=== PATIENT | female | born 1990 | race African-American/Black ===

== ENCOUNTER 2016-11-01 09:22 | Emergency (ER) | payer OTHER ==
[~2016-11-01] VITALS: Ht 172.7 cm; Wt 75.0 kg
[2016-11-01 09:25] VITALS: BP 126/75; PULSE 111; RESP 16; TEMP 98.3; O2SAT 98
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
[2016-11-01] MEDS ORDERED: ORPHENADRINE INJ 60 MG/2 ML AMP IM ONE (10:30)
[2016-11-01] MEDS ORDERED: KETOROLAC TROMETHAMINE 60 MG/2 ML (IM) VIAL IM ONE (10:30)
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
[2016-11-01] MEDS ORDERED: NAPR500T PO (11:09)
[2016-11-01] MEDS ORDERED: ROBA750T PO (11:09)
== END 2016-11-01 12:18 | disposition home or self-care (01) ==
LOC: NEPB 09:22
DX: M54.5 Low back pain (principal); S39.012A Strain of muscle, fascia and tendon of lower back, initial encounter; M25.551 Pain in right hip; S70.10XA Contusion of unspecified thigh, initial encounter; V49.59XA Passenger injured in collision with other motor vehicles in traffic accident, initial encounter; Y93.89 Activity, other specified; Y92.410 Unspecified street and highway as the place of occurrence of the external cause
CPT/HCPCS: 72110; 73502; 84703; 96372; 99283; J1885; J2360

== ENCOUNTER 2018-01-31 18:27 | Emergency (ER) | payer OTHER ==
[~2018-01-31] VITALS: Ht 172.7 cm; Wt 90.0 kg
[~2018-01-31 18:27] MED LIST: NAPR500T2 PO; ROBA750T PO
[2018-01-31 18:56] VITALS: BP 116/81; PULSE 107; RESP 21; TEMP 102.3; O2SAT 98
[2018-01-31] MEDS ORDERED: guaiFENesin/CODEINE SYRUP 200 MG/20 MG/10 ML CUP PO ONE (19:30)
[2018-01-31] MEDS ORDERED: ACETAMINOPHEN 500 MG CPLT PO ONE (19:30)
[2018-01-31] MEDS ORDERED: KETOROLAC TROMETHAMINE 30 MG/ML (IVP) VIAL IV PUSH ONE (19:30)
[2018-01-31] MEDS ORDERED: SODIUM CHLOR 0.9% 1000 ML INJ 1,000 ML IV ONE (19:30)
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
[2018-01-31 20:13] LABS: BASOPHIL % 0.8 % (0.0-2.0); EOSINOPHIL # 0.1 TH/MM3 (0-0.4); EOSINOPHIL % 1.6 % (0.0-4.0); HEMATOCRIT 40.4 % (35.0-46.0); HEMOGLOBIN 13.1 GM/DL (11.6-15.3); LYMPHOCYTE # 1.3 TH/MM3 (1.0-4.8); MEAN CELL VOLUME 83.8 FL (80.0-100.0); MEAN CORPUSCULAR HEMOGLOBIN 27.2 PG (27.0-34.0); MEAN CORPUSCULAR HGB CONC 32.4 % (32.0-36.0); MEAN PLATELET VOLUME 9.2 FL (7.0-11.0); MONO % 16.6 % (0.0-8.0); MONOCYTE # 0.7 TH/MM3 (0-0.9); PLATELET COUNT 214 TH/MM3 (150-450); RED BLOOD COUNT 4.82 MIL/MM3 (4.00-5.30); RED CELL DISTRIBUTION WIDTH 12.7 % (11.6-17.2); WHITE BLOOD COUNT 4.1 TH/MM3 (4.0-11.0)
[2018-01-31 20:18] LABS: AST (GOT) 13 U/L (15-37); BICARBONATE 24.7 MEQ/L (21.0-32.0); BLOOD UREA NITROGEN 8 MG/DL (7-18); CALCIUM 7.7 MG/DL (8.5-10.1); CREATININE 0.94 MG/DL (0.50-1.00); GLOMERULAR FILTRATION RATE 86 ML/MIN (>89); GLUCOSE,RANDOM 87 MG/DL (74-106)
[2018-01-31 20:20] LABS: ALT (GPT) 16 U/L (10-53)
[2018-01-31 20:38] LABS: ALKALINE PHOSPHATASE 61 U/L (45-117); CHLORIDE 109 MEQ/L (98-107); SODIUM (NA) 142 MEQ/L (136-145); TOTAL BILIRUBIN ADULT 0.2 MG/DL (0.2-1.0); TOTAL PROTEIN 6.6 GM/DL (6.4-8.2)
[2018-01-31 20:43] VITALS: BP_SYST 123; BP_SYST 125; BP_SYST 129; BP_DIAS 71; BP_DIAS 72; BP_DIAS 77; RESP 20
[2018-01-31 20:47] VITALS: TEMP 98.9
[2018-01-31] MEDS ORDERED: IBUP-232 PO (21:25)
[2018-01-31] MEDS ORDERED: OSEL75 PO (21:25)
[2018-01-31] MEDS ORDERED: GUAISYP4 PO (21:25)
[2018-01-31] MEDS ORDERED: SUDO60TA2 PO (21:25)
[2018-01-31] MEDS ORDERED: OSELTAMIVIR PHOSPHATE 75 MG CAP PO ONE (21:30)
== END 2018-01-31 21:52 | disposition home or self-care (01) ==
LOC: NEPE 18:27
DX: R55 Syncope and collapse (principal); J11.1 Influenza due to unidentified influenza virus with other respiratory manifestations
CPT/HCPCS: 80053; 82150; 83690; 84703; 85025; 87804; 96361; 96374; 99284; J1885; J7030

== ENCOUNTER 2018-08-18 10:17 | Inpatient (IN) ==
[2018-08-18] MEDS ORDERED: Sod Chloride 0.9% Inj 1,000 ML IV.SIG ONE (12:13)
--- NOTE | 2018-08-18 12:17 | ED ---
HPI General Chief complaint: Syncope Stated complaint: Syncope Time Seen by Provider: 08/18/18 12:13 History of Present Illness HPI narrative: 28-year-old female is brought to the emergency department for evaluation of syncope. Per EMS report the patient passed out in the bathroom at work and a bystander heard her fall and hit the floor. Per EMS report while the patient was waiting in the ambulance bay she tried to get up to go to the bathroom and felt dizzy and per their report her heart rate dropped to the 30s. The patient states that last night she had a mild headache and went to bed hoping it would go away however when she woke up this morning she had a slight headache as well. States that she went to work at 9 AM and was not feeling well overall. States that about 10 minutes prior to her syncopal event she started feeling lightheaded. 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 States that she is still feeling lightheaded when she sits up. States she still has a slight headache. She is also complaining of neck pain, states that the pressure test operator was holding her in an awkward position which she thinks strained her neck. She states she did have cold symptoms last week however this resolved on its own. She denies but states that she is late for her menstrual cycle, her last menstrual period was 07/04/18. States she has been having menstrual cramps for the past 2 weeks intermittently. She denies any fever, chills, nausea, vomiting, chest pain, shortness of breath, diarrhea, numbness or tingling, blurred vision, weakness. States she has never passed out before. States she is currently being evaluated for possible lupus by her PCP and has a history of gestational diabetes, no other medical problems. No other complaints. Related Data Allergies Allergy/AdvReac Type Severity Reaction Status Date / Time No Known Allergies Allergy Verified 08/18/18 11:43 Review of Systems ROS: all other systems reviewed are negative [facility] Medical History Medical History Gestational diabetes (Acute) Lupus (Acute) Patient denies medical problems (Acute) Social History Social History Substance History: No History of Abuse Second Hand Smoke Exposure: No Smoking Status: Never smoker How Often Do You Have a Drink Containing Alcohol: Never Recent Travel in [facility] within the Last 8 Weeks: No Recent Out of Country Travel within the Last 8 Weeks: No Immunization History Tetanus Immunization: <5 Years Exam Narrative Exam Narrative: GENERAL: Well-nourished and well-developed pleasant patient in no acute distress who is nontoxic appearing. SKIN: Warm and dry without any obvious rashes or lesions. HEAD: Normocephalic and atraumatic. EYES: No injection, drainage, or hyphema noted. PERRLA. EOMI. ENT: No nasal drainage noted. Oropharynx is clear and the TMs are normal with good landmarks. NECK: Supple and the trachea is midline. Tenderness to palpation of right trapezius muscles. CARDIOVASCULAR: Regular rate and rhythm. RESPIRATORY: Breath sounds are equal bilaterally with no accessory muscle use, wheezing, rhonchi, or crackles. GASTROINTESTINAL: Abdomen is soft, non-tender, and nondistended. MUSCULOSKELETAL: No obvious deformities, swelling, cyanosis, or ecchymosis is present throughout the upper and lower extremities. Patient has full range of motion without any signs of neurovascular compromise. Distal pulses are 2+ throughout. Strength 5/5 upper and lower extremities and equal bilaterally. NEUROLOGICAL: Awake, alert, and oriented. Normal speech and gait. Cranial nerves are grossly intact. Course Initial Documented Vital Signs Pulse Rate 67 08/18/18 11:39 Respiratory Rate 16 08/18/18 11:39 Blood Pressure 133/91 H 08/18/18 11:39 Pulse Oximetry 100 08/18/18 11:39 Last Documented Vital Signs Pulse Rate 67 08/18/18 11:39 Respiratory Rate 16 08/18/18 11:39 Blood Pressure 133/91 H 08/18/18 11:39 Pulse Oximetry 98 08/18/18 12:00 Medical Decision Making DAVID Attestation DAVID supervised visit: Yes Attestation: I, Dr. Garcia, have reviewed the advance practice practitioner's documentation and am in agreement, met with the patient face to face, made the diagnosis, and the medical decision making was done by me. *My assessment and Findings: Patient has had syncope with collapse and heart rate reported to be in the 30s by EMS. I see no record of evaluation for cardiogenic syncope in our EMR. Please refer to the mid-level documentation for additional details. Of my exam the patient has a soft nontender belly. No murmur on cardiac exam and a regular heart rate. Lungs are clear bilaterally. Neurologic exam is normal with normal cranial nerves speech memory mentation as well. [facility] Narrative Medical decision making narrative: 28-year-old female presents to the emergency department for evaluation of syncope. Patient is afebrile, vital signs are stable. Physical examination is unremarkable with the exception of when the patient sits up in bed she does feel presyncopal. No focal neurologic deficits. IV access is obtained, labs have been drawn and sent. Patient is placed on cardiac telemetry and pulse oximetry monitoring. EKG shows sinus bradycardia with a ventricular rate of 57 bpm. Patient administered IV fluids. CBC is unremarkable. CMP shows slightly low calcium of 7.9 and slightly low albumin of 3.1, otherwise unremarkable. Troponin is less than 0.02. Beta-hCG is less than 1. Chest x-ray is negative for any acute abnormalities. Head CT is negative for any acute abnormalities. CT of cervical spine is negative for any acute abnormalities. Patient reassessed and she is still saying she feels very lightheaded and dizzy when she sits up or tries to stand up. She cannot ambulate due to her presyncopal symptoms. She has had 1.5 L of fluid without improvement. Discussed with attending physician Dr. Garcia who agrees patient should be kept in observation. I spoke with Dr. Oates [facility] who accepts patient for observation. Medical Screen Exam Complete: Yes Emergency Medical Condition: Yes Differential Diagnosis Differential Diagnosis: Dehydration versus electrolyte abnormality versus migraine headache versus Lab Data Lab results reviewed: Yes I reviewed the patient's lab results. Result diagrams: 08/18/18 11:54 08/18/18 11:54 POC Results POC Urine Results Negative Lab Results 08/18/18 08/18/18 08/18/18 Range/Units 11:54 11:54 11:54 WBC 5.6 (4.0-11.0) th/mm3 RBC 4.61 (4.00-5.30) mil/mm3 Hgb 12.8 (11.6-15.3) gm/dL Hct 40.3 (35.0-46.0) % MCV 87.4 (80.0-100.0) fL MCH 27.7 (27.0-34.0) pg MCHC 31.7 L (32.0-36.0) % RDW 13.4 (11.6-17.2) % Plt Count 239 (150-450) th/mm3 MPV 8.9 (7.0-11.0) fL Neut % (Auto) 53.9 (16.0-70.0) % Lymph % (Auto) 34.6 (9.0-44.0) % [place] % (Auto) 8.0 (0.0-8.0) % Eos % (Auto) 2.8 (0.0-4.0) % Baso % (Auto) 0.7 (0.0-2.0) % Neut # (Auto) 3.0 (1.8-7.7) th/mm3 Lymph # (Auto) 1.9 (1.0-4.8) th/mm3 [place] # (Auto) 0.4 (0.0-0.9) th/mm3 Eos # (Auto) 0.2 (0.0-0.4) th/mm3 Baso # (Auto) 0.0 (0.0-0.2) th/mm3 WBC Differential . Differential Comment Auto diff final Sodium 141 Cancelled (136-145) meq/L Potassium 4.1 Cancelled (3.5-5.1) meq/L Chloride 110 H Cancelled (98-107) meq/L Carbon Dioxide 23.0 Cancelled (21.0-32.0) meq/L Anion Gap 8 Cancelled (5-15) meq/L BUN 10 Cancelled (7-18) mg/dL Creatinine 0.76 Cancelled (0.50-1.00) mg/dL Estimated GFR Greater than 89 Cancelled (>89) mL/min Random Glucose 83 Cancelled (74-106) mg/dL Calcium 7.9 L Cancelled (8.5-10.1) mg/dL Prot Corrected Calcium Cancelled Magnesium 1.9 Cancelled (1.5-2.5) mg/dL Total Bilirubin 0.3 Cancelled (0.2-1.0) mg/dL AST 18 Cancelled (15-37) U/L ALT 28 Cancelled (10-53) U/L Alkaline Phosphatase 79 Cancelled (45-117) U/L Troponin I Less than 0.02 L (0.02-0.05) ng/mL Total Protein 6.8 Cancelled (6.4-8.2) g/dL Albumin 3.1 L Cancelled (3.4-5.0) g/dL Beta HCG, Quant Less than 1 Cancelled (0-5) mIU/mL Imaging Data Radiologist's impression: Chest X-Ray 08/18/18 11:55 CONCLUSION: Negative examination. Cervical Spine CT 08/18/18 12:13 CONCLUSION: 1. Negative for an acute traumatic injury Head CT 08/18/18 12:13 CONCLUSION: 1. No acute intracranial abnormality identified. Discharge Plan Discharge Disposition Patient Disposition: 30 Still Patient Discharge Details Diagnosis: Syncope and collapse Physicians Team ED Provider: Naresh Garcia ED Midlevel Provider: Carole Patricia Primary Care Provider: Primary Care Tierra,Gabby Attending Provider: Ronan Oates Other Providers: Lucretia Farias Status ED Status: Admitted Observation Patient
--- NOTE | 2018-08-18 12:24 | XR ---
EXAM DATE: 08/18/2018 12:22 PM EST AGE/SEX: 28 years / Female INDICATIONS: Syncope and low heart rate. CLINICAL DATA: This is the patient's initial encounter. Patient reports that signs and symptoms have been present for 1 day and indicates a pain score of 2/10. MEDICAL/SURGICAL HISTORY: None. None. COMPARISON: [facility] [place], CHEST 1V SINGLE AP, 07/02/2018. . FINDINGS: A single AP view of the chest demonstrates the lungs to be symmetrically aerated without evidence of mass, infiltrate or effusion. The cardiomediastinal contours are unremarkable. Osseous structures a re intact. CONCLUSION: Negative examination. Electronically signed by: Naresh Amin MD 08/18/2018 12:23 PM EST
[2018-08-18 12:30] LABS: Baso % (Auto) 0.7 % (0.0-2.0); Eos # (Auto) 0.2 th/mm3 (0.0-0.4); Eos % (Auto) 2.8 % (0.0-4.0); Hematocrit 40.3 % (35.0-46.0); Hemoglobin 12.8 gm/dL (11.6-15.3); Lymph # (Auto) 1.9 th/mm3 (1.0-4.8); Lymph % (Auto) 34.6 % (9.0-44.0); Mean Corpuscular HGB Conc 31.7 % (32.0-36.0); Mean Corpuscular Hemoglobin 27.7 pg (27.0-34.0); Mean Corpuscular Volume 87.4 fL (80.0-100.0); Mean Platelet Volume 8.9 fL (7.0-11.0); Mono # (Auto) 0.4 th/mm3 (0.0-0.9); Neut % (Auto) 53.9 % (16.0-70.0); Platelet Count 239 th/mm3 (150-450); Red Blood Count 4.61 mil/mm3 (4.00-5.30); Red Cell Distribution Width 13.4 % (11.6-17.2); White Blood Count 5.6 th/mm3 (4.0-11.0)
[2018-08-18 12:51] LABS: Anion Gap 8 meq/L (5-15); Blood Urea Nitrogen 10 mg/dL (7-18); Calcium 7.9 mg/dL (8.5-10.1); Chloride 110 meq/L (98-107); Glomerular Filtration Rate Greater Than 89 mL/min (>89); Glucose,Random 83 mg/dL (74-106); Sodium 141 meq/L (136-145)
[2018-08-18 12:53] LABS: Potassium 4.1 meq/L (3.5-5.1)
--- NOTE | 2018-08-18 12:53 | CT ---
EXAM DATE: 08/18/2018 12:49 PM EST AGE/SEX: 28 years / Female INDICATIONS: Syncope, hit head. CLINICAL DATA: This is the patient's initial encounter. Patient reports that signs and symptoms have been present for 1 day and indicates a pain score of 3/10. MEDICAL/SURGICAL HISTORY: Lupus. None. RADIATION DOSE: 56.35 CTDI (mGy) COMPARISON: [facility] [place]19/2016. . TECHNIQUE: CT of the head without contrast. Using automated exposure control and adjustment of the mA and/or kV according to patient size, radiation dose was kept as low as reasonably achievable to ob tain optimal diagnostic quality images. DICOM format image data is available electronically for revi ew and comparison. FINDINGS: Cerebrum: The ventricles are normal for age. No evidence of midline shift, mass lesion, hemorrhage or acute infarction. No extraaxial fluid collections are seen. Posterior Fossa: The cerebellum and brainstem are intact. The 4th ventricle is midline. The cerebe llopontine angle is unremarkable. Extracranial: The visualized portion of the orbits is intact. Skull: The calvaria is intact. No evidence of skull fracture. CONCLUSION: 1. No acute intracranial abnormality identified. Electronically signed by: Naresh Amin MD 08/18/2018 12:52 PM EST
[2018-08-18 12:55] LABS: Alanine Aminotransferase 28 U/L (10-53); Albumin 3.1 g/dL (3.4-5.0); Alkaline Phosphatase 79 U/L (45-117); Aspartate Aminotransferase 18 U/L (15-37); Magnesium 1.9 mg/dL (1.5-2.5); Total Protein 6.8 g/dL (6.4-8.2)
--- NOTE | 2018-08-18 12:55 | CT ---
EXAM DATE: 08/18/2018 12:51 PM EST AGE/SEX: 28 years / Female INDICATIONS: Syncope, hit head. CLINICAL DATA: This is the patient's initial encounter. Patient reports that signs and symptoms have been present for 1 day and indicates a pain score of 4/10. MEDICAL/SURGICAL HISTORY: Lupus. None. RADIATION DOSE: 17.41 CTDI (mGy) [place] [facility] [place]19[place]. . TECHNIQUE: Contiguous axial images were obtained using helical multirow detector technique. The vol umetric data was post-processed with multiplanar reconstruction in oblique axial, sagittal, and coron al planes. Using automated exposure control and adjustment of the mA and/or kV according to patient s ize, radiation dose was kept as low as reasonably achievable to obtain optimal diagnostic quality lali ges. DICOM format image data is available electronically for review and comparison. FINDINGS: Vertebrae: Normal vertebral body height. Alignment: Normal. No subluxation. C2-3: The bony spinal canal is normal in size. No evidence of disc bulge or herniation. The neural foramina are bilaterally patent. C3-4: The bony spinal canal is normal in size. No evidence of disc bulge or herniation. The neural foramina are bilaterally patent. C4-5: The bony spinal canal is normal in size. No evidence of disc bulge or herniation. The neural foramina are bilaterally patent. C5-6: The bony spinal canal is normal in size. No evidence of disc bulge or herniation. The neural foramina are bilaterally patent. C6-7: The bony spinal canal is normal in size. No evidence of disc bulge or herniation. The neural foramina are bilaterally patent. C7-T1: The bony spinal canal is normal in size. No evidence of disc bulge or herniation. The neura l foramina are bilaterally patent. CONCLUSION: 1. Negative for an acute traumatic injury Electronically signed by: Gray Amin MD 08/18/2018 12:54 PM EST
[2018-08-18 14:50] LABS: Amphetamine Screen,Urine Neg (Neg); Barbiturate Screen,Urine Neg (Neg); Bilirubin,Urine Negative (Negative); Cannabinoid Screen,Urine Neg (Neg); Clarity,Urine Clear (Clear); Cocaine Screen,Urine Neg (Neg); Color,Urine Yellow (Yellw/Straw); Glucose,Urine (UA) Negative (Negative); Leukocyte Esterase,Urine Negative (Negative); Mucus,Urine Few /lpf (Occasional); Nitrite,Urine Negative (Negative); Specific Gravity,Urine 1.016 (1.002-1.035); Squamous Epithelial Cell,Urine 3 /hpf (0-5)
[2018-08-18 14:52] LABS: Opiate Screen,Urine Neg (Neg)
[2018-08-18] MEDS ORDERED: Acetaminophen 325 MG Tablet PO PRN (16:16)
--- NOTE | 2018-08-18 16:33 | P.HP ---
History of Present Illness Service: [facility] Primary Care Physician: No Primary Care Physician Chief Complaint: dizziness, headache History of Present Illness: This is a pleasant 28-year-old -Monegasque female with PMHx of lupus on Prednisone who presents to the emergency room for evaluation of syncope. According to the patient, this morning she got up and felt dizzy, had a headache , and mild nausea. She went to her job at [employer]. While working she continued to feel ill, went to bathroom to splash some water on her face when she passed out. States a [employer] and other employees found her. The next thing she remembers is waking up in the ambulance truck. No loss of bladder or bowel function. Per EMS, while patient was waiting in the ambulance she went to get up to go to the bathroom when she felt dizzy again and heart rate was noted to drop to 30s. Patient indicates that since last night she has had a headache, it is frontal, tension type. She has a history of headaches when she was for which she used to take Fioricet. Denies any photophobia. Indicates that she has been working a lot, works 6 days a week and only has 1 day of. She is telling me that she is having chest tightness, midsternum, non radiating, a "7". States she had chest tightness since coming in. States she had "cold symptoms" approximately 2 weeks ago. Denies any cough, sob, sputum. No recent fever or chills. States her menses are irregular, last one was June. Complaints of mild pelvic cramping. CT of the head negative. Cervical spine CT no acute fractures. Negative urine drug screen. UA was negative. She has hx of syncope back in January when she had the flu. Patient is admitted for further evaluation and treatment. 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 - Medical History Medical History: Medical History (Last Reviewed 08/18/18 @ 16:09 by ROGER Mukherjee) Gestational diabetes Lupus Patient denies medical problems - Family History Family History: Family History (Last Updated 08/18/18 @ 16:16 by ROGER Mukherjee) Mother Diabetes Father Cardiac defibrillator in situ Pacemaker - Social History I have reviewed the patient's Social History: Yes - Tobacco History Second Hand Smoke Exposure: No Smoking Status: Never smoker - Alcohol History How Often Do You Have a Drink Containing Alcohol: Never - Substance Use History Substance History: No History of Abuse - Travel History Recent Travel in the [place] Within the Last 8 Weeks: No Recent Travel Out of the Country Within the Last 8 Weeks: No - Immunization History Tetanus Immunization: <5 Years Medications and Allergies Active Medications: Active Medications Sodium Chloride (Ns Inj) 1,000 mls @ 100 mls/hr IV.CONT .Q10H JAMAL Allergies Allergy/AdvReac Type Severity Reaction Status Date / Time No Known Allergies Allergy Verified 08/18/18 11:43 Exam Vital signs: Vital Signs 08/18/18 11:39 08/18/18 12:00 08/18/18 14:42 Pulse Rate 67 71 Respiratory Rate 16 Blood Pressure 133/91 H 152/70 H Pulse Oximetry 100 98 Intake & Output 08/17/18 08/18/18 08/18/18 18:59 06:59 18:59 Intake Total 1000 / 1000 Balance 1000 / 1000 Weight 65.771 kg Intake: IV 1000 / 1000 NS Inj 1,000 ML @ Wide Open IV. 1000 / 1000 SIG BOLUS ONE Rx#:[id number] Narrative: GENERAL: Well-nourished, well-developed patient in no apparent distress. SKIN: Warm and dry. HEAD: Atraumatic. Normocephalic. EYES: Pupils equal and round. No scleral icterus. No injection or drainage. ENT: No nasal bleeding or discharge. Mucous membranes pink and moist. NECK: Trachea midline. No JVD. CARDIOVASCULAR: Regular rate and rhythm. RESPIRATORY: No accessory muscle use. Clear to auscultation. Breath sounds equal bilaterally. GASTROINTESTINAL: Abdomen soft, non-tender, nondistended. Hepatic and splenic margins not palpable. MUSCULOSKELETAL: Extremities without clubbing, cyanosis, or edema. No obvious deformities. NEUROLOGICAL: Awake and alert and oriented x3. No obvious cranial nerve deficits. Motor grossly within normal limits. Five out of 5 muscle strength in the arms and legs. Normal speech. PSYCHIATRIC: Appropriate mood and affect; insight and judgment normal. Results - Labs CBC & Chem 7: 08/18/18 11:54 08/18/18 11:54 Labs: Laboratory Results - last 24 hr 08/18/18 08/18/18 08/18/18 11:54 11:54 11:54 WBC 5.6 RBC 4.61 Hgb 12.8 Hct 40.3 MCV 87.4 MCH 27.7 MCHC 31.7 L RDW 13.4 Plt Count 239 MPV 8.9 Neut % (Auto) 53.9 Lymph % (Auto) 34.6 [place] % (Auto) 8.0 Eos % (Auto) 2.8 Baso % (Auto) 0.7 Neut # (Auto) 3.0 Lymph # (Auto) 1.9 [place] # (Auto) 0.4 Eos # (Auto) 0.2 Baso # (Auto) 0.0 WBC Differential . Differential Comment Auto diff final Sodium 141 Cancelled Potassium 4.1 Cancelled Chloride 110 H Cancelled Carbon Dioxide 23.0 Cancelled Anion Gap 8 Cancelled BUN 10 Cancelled Creatinine 0.76 Cancelled Estimated GFR Greater than 89 Cancelled Random Glucose 83 Cancelled Calcium 7.9 L Cancelled Prot Corrected Calcium Cancelled Magnesium 1.9 Cancelled Total Bilirubin 0.3 Cancelled AST 18 Cancelled ALT 28 Cancelled Alkaline Phosphatase 79 Cancelled Troponin I Less than 0.02 L Total Protein 6.8 Cancelled Albumin 3.1 L Cancelled Beta HCG, Quant Less than 1 Cancelled Urine Color Urine Clarity Urine pH Ur Specific [place] Urine Protein Urine Glucose (UA) Urine Ketones Urine Occult Blood Urine Nitrate Urine Bilirubin Urine Urobilinogen Ur Leukocyte Esterase Urine RBC Urine WBC Ur Squamous Epith Cells Urine Mucus Micro UA Comment Ur Microscopic Review Urine Culture Comments Urine Opiates Screen Ur Barbiturates Screen Ur Amphetamines Screen U Benzodiazepines Scrn Urine Cocaine Screen U Cannabinoids Screen 08/18/18 08/18/18 14:21 14:21 WBC RBC Hgb Hct MCV MCH MCHC RDW Plt Count MPV Neut % (Auto) Lymph % (Auto) [place] % (Auto) Eos % (Auto) Baso % (Auto) Neut # (Auto) Lymph # (Auto) [place] # (Auto) Eos # (Auto) Baso # (Auto) WBC Differential Differential Comment Sodium Potassium Chloride Carbon Dioxide Anion Gap BUN Creatinine Estimated GFR Random Glucose Calcium Prot Corrected Calcium Magnesium Total Bilirubin AST ALT Alkaline Phosphatase Troponin I Total Protein Albumin Beta HCG, Quant Urine Color Yellow Urine Clarity Clear Urine pH 6.0 Ur Specific [place] 1.016 Urine Protein Negative Urine Glucose (UA) Negative Urine Ketones Negative Urine Occult Blood Negative Urine Nitrate Negative Urine Bilirubin Negative Urine Urobilinogen Less than 2 Ur Leukocyte Esterase Negative Urine RBC Less than 1 Urine WBC 1 Ur Squamous Epith Cells 3 Urine Mucus Few H Micro UA Comment Culture not ind Ur Microscopic Review Not Reportable Urine Culture Comments Culture not ind Urine Opiates Screen Neg Ur Barbiturates Screen Neg Ur Amphetamines Screen Neg U Benzodiazepines Scrn Neg Urine Cocaine Screen Neg U Cannabinoids Screen Neg - Imaging Impressions Chest X-Ray 08/18/18 11:55 CONCLUSION: Negative examination. Cervical Spine CT 08/18/18 12:13 CONCLUSION: 1. Negative for an acute traumatic injury Head CT 08/18/18 12:13 CONCLUSION: 1. No acute intracranial abnormality identified. Caprini VTE Risk Assessment Caprini VTE Risk Assessment: No/Low Risk (score <= 1) Caprini Risk Assessment Model: Point Value = 1 Point Value = 2 Point Value = 3 Point Value = 5 Age 41-60 Minor surgery BMI > 25 kg/m2 Swollen legs Varicose veins or History of unexplained or recurrent spontaneous Oral contraceptives or hormone replacement Sepsis (< 1 month) Serious lung disease, including pneumonia (< 1 month) Abnormal pulmonary function Acute myocardial infarction Congestive heart failure (< 1 month) History of inflammatory bowel disease Medical patient at bed rest Age 61-74 Arthroscopic surgery Major open surgery (> 45 min) Laparoscopic surgery (> 45 min) Malignancy Confined to bed (> 72 hours) Immobilizing plaster cast Central venous access Age >= 75 History of VTE Family history of VTE Factor V Leiden Prothrombin [id number] Lupus anticoagulant Anticardiolipin antibodies Elevated serum homocysteine Heparin-induced thrombocytopenia Other congenital or acquired thrombophilia Stroke (< 1 month) Elective arthroplasty Hip, pelvis, or leg fracture Acute spinal cord injury (< 1 month) Prophylaxis Regimen: Total Risk Factor Score Risk Level Prophylaxis Regimen 0-1 Low Early ambulation 2 Moderate Order ONE of the following: *Sequential Compression Device (SCD) *Heparin 5000 units SQ BID 3-4 Higher Order ONE of the following medications: *Heparin 5000 units SQ TID *Enoxaparin/Lovenox 40 mg SQ daily (WT < 150 kg, CrCl > 30 mL/min) *Enoxaparin/Lovenox 30 mg SQ daily (WT < 150 kg, CrCl > 10-29 mL/min) *Enoxaparin/Lovenox 30 mg SQ BID (WT < 150 kg, CrCl > 30 mL/min) AND/OR *Sequential Compression Device (SCD) 5 or more Highest Order ONE of the following medications: *Heparin 5000 units SQ TID (Preferred with Epidurals) *Enoxaparin/Lovenox 40 mg SQ daily (WT < 150 kg, CrCl > 30 mL/min) *Enoxaparin/Lovenox 30 mg SQ daily (WT < 150 kg, CrCl > 10-29 mL/min) *Enoxaparin/Lovenox 30 mg SQ BID (WT < 150 kg, CrCl > 30 mL/min) AND *Sequential Compression Device (SCD) Assessment and Plan - Assessment (1) Syncope and collapse Code(s): R55 - Syncope and collapse Status: Acute (2) Cephalgia Code(s): R51 - Headache Status: Acute - Plan 28 year old female admitted with c/o dizziness, headache. Today while walking to bathroom she passed out. During EMS evaluation, she felt dizzy again and was noted bradycardic with HR down to 30s. Laboratory work up unremarkable, CT head negative. Syncope, etiology unclear Initially complaining of feeling dizzy and having headache. 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 Neurology evaluation recommended -Echo ordered as well as carotid US -Continuous cardiac monitoring -Orthostatics q shift -Neurology consulted per cardiology -NS @ 100/hr Cephalgia, tension type headache -Neurology consultation -will check sed rate, TSH Chest pain, atypical Trop negative, EKG reviewed SB -continue to monitor -rn cardiac rehab -Cardiology following Hx of Lupus on chronic steroids -will resume when home medications are reconciled. DVT prophylaxis-pt. ambulatory Code Status: Full code Discussed Condition With: RN, pt Discharge Planning: pending work up (2) Cephalgia Qualifiers: Headache type: tension-type Headache chronicity pattern: episodic headache
--- NOTE | 2018-08-18 16:34 | US ---
EXAM DATE: 08/18/2018 4:27 PM EST AGE/SEX: 28 years / Female INDICATIONS: Syncope. CLINICAL DATA: This is the patient's initial encounter. Patient reports that signs and symptoms have been present for 1 day and indicates a pain score of 8/10. MEDICAL/SURGICAL HISTORY: Lupus. Gestational diabetes. None. COMPARISON: No prior exams available for comparison. VELOCITY PARAMETERS: ICA/CCA Ratio: Right 1.0 , Left 1.1 ICA: Right 138 cm/sec, Left 153 cm/sec CCA: Right 142 cm/sec, Left 144 cm/sec ECA: Right 90 cm/sec, Left 73 cm/sec Vertebral: Right 82 cm/sec antegrade, Left 132 cm/sec antegrade FINDINGS: RIGHT CAROTID: There is no evidence for a hemodynamically significant carotid stenosis. Minimal int imal hyperplasia is present with scattered calcific plaque. LEFT CAROTID: There is no evidence for a hemodynamically significant carotid stenosis. Minimal inti mal hyperplasia is present with scattered calcific plaque. Flow is antegrade in both vertebral arteries. There are no ancillary masses or adenopathy. CONCLUSION: Negative examination for a hemodynamically significant carotid stenosis. Gray Amin MD FACR on-call Electronically signed by: Gray Amin MD 08/18/2018 4:33 PM EST
[2018-08-18] MEDS: Sod Chloride 0.9% Inj 1,000 ML IV.CONT SCH (16:50)
--- NOTE | 2018-08-18 17:02 | P.CONCA ---
History of Present Illness Service: Cardiology Consult date: 08/18/18 Requesting Physician: Ronan Oates Reason for Consult: Syncope Primary Care Provider: No Primary Care Physician Chief Complaint: dizziness, headache History of Present Illness: This is a very pleasant 28-year-old female with a past medical history of Lupus. She states that she was at work earlier today and had a syncopal episode in the bathroom. She states that when she woke up this morning she had a headache and did not feel well but went to work anyway. While at work , she became worse and had to lay her head down for a few minutes. She also stated that, a coworker told her that she did not look good. Per the records, EMS reported that a bystander heard her fall and hit the floor. EMS also reported, that while they were waiting in the ambulance bay, she had to go to the restroom. When she got up she became dizzy and her heart rate dropped into the 30's. She denied any CP, pressure, palpitations, edema or SOB prior to this episode. She did complain of dizziness. Currently, she denies any CP, pressure, palpitations, dizziness, edema or SOB. She does complain of a headache. 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 - Medical History Medical History: Medical History (Last Reviewed 08/18/18 @ 16:09 by ROGER Mukherjee) Gestational diabetes Lupus Patient denies medical problems - Family History Family History: Family History (Last Updated 08/18/18 @ 16:16 by ROGER Mukherjee) Mother Diabetes Father Cardiac defibrillator in situ Pacemaker - Tobacco History Second Hand Smoke Exposure: No Smoking Status: Never smoker - Alcohol History How Often Do You Have a Drink Containing Alcohol: Never - Substance Use History Substance History: No History of Abuse - Travel History Recent Travel in the [place] Within the Last 8 Weeks: No Recent Travel Out of the Country Within the Last 8 Weeks: No - Immunization History Tetanus Immunization: <5 Years Medications and Allergies Allergies Allergy/AdvReac Type Severity Reaction Status Date / Time No Known Allergies Allergy Verified 08/18/18 11:43 Active Medications: Active Medications Acetaminophen (Tylenol) 650 mg PO Q4H PRN PRN Reason: Temp > 100.4 Al Hydroxide/Mg Hydroxide (Milk Of Magnesia Liq) 30 ml PO DAILY PRN PRN Reason: SEVERE CONSITIPATION Sodium Chloride (Ns Inj) 1,000 mls @ 100 mls/hr IV.CONT .Q10H JAMAL Ondansetron HCl (Zofran Inj) 4 mg IV.PUSH Q6H PRN PRN Reason: NAUSEA Exam Vital signs: Vital Signs 08/18/18 11:39 08/18/18 12:00 08/18/18 14:42 Pulse Rate 67 71 Respiratory Rate 16 Blood Pressure 133/91 H 152/70 H Pulse Oximetry 100 98 Intake & Output 08/17/18 08/18/18 08/18/18 18:59 06:59 18:59 Intake Total 1000 / 1000 Balance 1000 / 1000 Weight 65.771 kg Intake: IV 1000 / 1000 NS Inj 1,000 ML @ Wide Open IV. 1000 / 1000 SIG BOLUS ONE Rx#:[id number] - Constitutional no acute distress - Routine HEENT Exam Head: Present: normocephalic Eye: Present: PERRL ENT: Present: mucous membranes moist - Routine Neck Exam Present: full ROM - Routine Respiratory Exam Present: CTA bilaterally - Routine Cardiovascular Exam Present: S1, S2. Absent: murmur, gallop, rubs - Routine Abdominal Exam Present: soft, normoactive bowel sounds - Routine Extremities Exam Present: full ROM, pulses intact, normal capillary refill. Absent: cyanosis, clubbing, edema - Routine Skin Exam Present: intact - Routine Neurological Exam Present: oriented X3 Results 08/18/18 11:54 08/18/18 11:54 Cardiac Enzymes 08/18/18 08/18/18 Range/Units 11:54 11:54 AST 18 Cancelled (15-37) U/L Troponin I Less than 0.02 L (0.02-0.05) ng/mL CBC 08/18/18 Range/Units 11:54 WBC 5.6 (4.0-11.0) th/mm3 RBC 4.61 (4.00-5.30) mil/mm3 Hgb 12.8 (11.6-15.3) gm/dL Hct 40.3 (35.0-46.0) % Plt Count 239 (150-450) th/mm3 Neut # (Auto) 3.0 (1.8-7.7) th/mm3 Lymph # (Auto) 1.9 (1.0-4.8) th/mm3 [place] # (Auto) 0.4 (0.0-0.9) th/mm3 Eos # (Auto) 0.2 (0.0-0.4) th/mm3 Baso # (Auto) 0.0 (0.0-0.2) th/mm3 Comprehensive Metabolic Panel 08/18/18 08/18/18 Range/Units 11:54 11:54 Sodium 141 Cancelled (136-145) meq/L Potassium 4.1 Cancelled (3.5-5.1) meq/L Chloride 110 H Cancelled (98-107) meq/L Carbon Dioxide 23.0 Cancelled (21.0-32.0) meq/L BUN 10 Cancelled (7-18) mg/dL Creatinine 0.76 Cancelled (0.50-1.00) mg/dL Calcium 7.9 L Cancelled (8.5-10.1) mg/dL AST 18 Cancelled (15-37) U/L ALT 28 Cancelled (10-53) U/L Alkaline Phosphatase 79 Cancelled (45-117) U/L Total Protein 6.8 Cancelled (6.4-8.2) g/dL Albumin 3.1 L Cancelled (3.4-5.0) g/dL Intake and Output 08/18/18 08/18/18 08/18/18 06:59 14:59 22:59 Intake Total 1000 / 1000 Balance 1000 / 1000 Intake: IV 1000 / 1000 NS Inj 1,000 ML @ Wide Open IV. 1000 / 1000 SIG BOLUS ONE Rx#:[id number] Other: Weight 65.771 kg Patient Weight 08/19/18 06:59 Weight 65.771 kg - Imaging and Cardiology Imaging: Impressions Carotid Doppler Study 08/18/18 00:00 CONCLUSION: Negative examination for a hemodynamically significant carotid stenosis. Gray Amin MD FACR on-call Chest X-Ray 08/18/18 11:55 CONCLUSION: Negative examination. Cervical Spine CT 08/18/18 12:13 CONCLUSION: 1. Negative for an acute traumatic injury Head CT 08/18/18 12:13 CONCLUSION: 1. No acute intracranial abnormality identified. Assessment and Plan - Assessment (1) Syncope and collapse Code(s): R55 - Syncope and collapse Status: Acute (2) Cephalgia Code(s): R51 - Headache Status: Acute (3) Lupus (systemic lupus erythematosus) Code(s): M32.9 - Systemic lupus erythematosus, unspecified Status: Acute - Plan -Patient is having a headache; recommend neurology evaluation. -We will obtain orthostatics to evaluate for orthostatic hypotension. -We will get a 2D echo to evaluate LV function. -We will obtain a carotid US. -We will continue to monitor her on telemetry during her hospitalization. The patient was seen and evaluated by Dr. Farias who participated in care, management and decision making. - Attending Attestation Patient seen and examined. I reviewed and agree with the evaluation and plan as presented. Check echo. Neurology evaluation. Continue monitoring on telemetry. (2) Cephalgia Qualifiers: Headache type: tension-type Headache chronicity pattern: episodic headache
[2018-08-19] MEDS: Sod Chloride 0.9% Inj 1,000 ML IV.CONT SCH ×4 (01:25→13:30)
[2018-08-19 06:56] LABS: Baso % (Auto) 0.6 % (0.0-2.0); Eos # (Auto) 0.2 th/mm3 (0.0-0.4); Eos % (Auto) 4.2 % (0.0-4.0); Hematocrit 39.7 % (35.0-46.0); Hemoglobin 12.7 gm/dL (11.6-15.3); Lymph # (Auto) 1.7 th/mm3 (1.0-4.8); Lymph % (Auto) 33.6 % (9.0-44.0); Mean Corpuscular Hemoglobin 27.7 pg (27.0-34.0); Mean Corpuscular Volume 86.5 fL (80.0-100.0); Mean Platelet Volume 9.1 fL (7.0-11.0); Mono # (Auto) 0.3 th/mm3 (0.0-0.9); Mono % (Auto) 6.6 % (0.0-8.0); Neut # (Auto) 2.8 th/mm3 (1.8-7.7); Platelet Count 226 th/mm3 (150-450); Red Blood Count 4.59 mil/mm3 (4.00-5.30); Red Cell Distribution Width 13.4 % (11.6-17.2)
--- NOTE | 2018-08-19 10:13 | P.PN ---
Physical Exam Vital signs: Vital Signs 08/18/18 11:39 08/18/18 12:00 08/18/18 14:42 Temperature Pulse Rate 67 71 Respiratory Rate 16 Blood Pressure 133/91 H 152/70 H Pulse Oximetry 100 98 08/18/18 20:00 08/18/18 20:50 08/18/18 23:35 Temperature 96.5 F L 96.6 F L Pulse Rate 96 H 82 88 Respiratory Rate 18 18 Blood Pressure 98/65 L 107/63 Pulse Oximetry 98 98 08/19/18 03:38 08/19/18 08:00 Temperature 98.6 F 98.2 F Pulse Rate 76 76 Respiratory Rate 18 17 Blood Pressure 104/67 107/57 L Pulse Oximetry 100 99 Intake & Output 08/18/18 08/19/18 08/19/18 18:59 06:59 18:59 Intake Total 1000 / 1000 1480 / 1480 Balance 1000 / 1000 1480 / 1480 Weight 92.079 kg Intake: IV 1000 / 1000 1000 / 1000 NS Inj 1,000 ML @ 100 mls/hr IV 1000 / 1000 .CONT .Q10H JAMAL Rx#:[id number] NS Inj 1,000 ML @ Wide Open IV. 1000 / 1000 SIG BOLUS ONE Rx#:[id number] Oral 480 / 480 Other: # Voids 1 3 Weight On Admission 172.72 kg Results - Labs CBC & Chem 7: 08/19/18 05:49 08/18/18 11:54 Laboratory Results - last 24 hr 08/18/18 08/18/18 08/18/18 11:54 11:54 11:54 WBC 5.6 RBC 4.61 Hgb 12.8 Hct 40.3 MCV 87.4 MCH 27.7 MCHC 31.7 L RDW 13.4 Plt Count 239 MPV 8.9 Neut % (Auto) 53.9 Lymph % (Auto) 34.6 Hall % (Auto) 8.0 Eos % (Auto) 2.8 Baso % (Auto) 0.7 Neut # (Auto) 3.0 Lymph # (Auto) 1.9 Hall # (Auto) 0.4 Eos # (Auto) 0.2 Baso # (Auto) 0.0 WBC Differential . Differential Comment Auto diff final ESR Sodium 141 Cancelled Potassium 4.1 Cancelled Chloride 110 H Cancelled Carbon Dioxide 23.0 Cancelled Anion Gap 8 Cancelled BUN 10 Cancelled Creatinine 0.76 Cancelled Estimated GFR Greater than 89 Cancelled Random Glucose 83 Cancelled Calcium 7.9 L Cancelled Prot Corrected Calcium Cancelled Magnesium 1.9 Cancelled Total Bilirubin 0.3 Cancelled AST 18 Cancelled ALT 28 Cancelled Alkaline Phosphatase 79 Cancelled Troponin I Less than 0.02 L Total Protein 6.8 Cancelled Albumin 3.1 L Cancelled TSH Beta HCG, Quant Less than 1 Cancelled Urine Color Urine Clarity Urine pH Ur Specific [place] Urine Protein Urine Glucose (UA) Urine Ketones Urine Occult Blood Urine Nitrate Urine Bilirubin Urine Urobilinogen Ur Leukocyte Esterase Urine RBC Urine WBC Ur Squamous Epith Cells Urine Mucus Micro UA Comment Ur Microscopic Review Urine Culture Comments Urine Opiates Screen Ur Barbiturates Screen Ur Amphetamines Screen U Benzodiazepines Scrn Urine Cocaine Screen U Cannabinoids Screen 08/18/18 08/18/18 08/18/18 11:54 11:54 14:21 WBC RBC Hgb Hct MCV MCH MCHC RDW Plt Count MPV Neut % (Auto) Lymph % (Auto) [place] % (Auto) Eos % (Auto) Baso % (Auto) Neut # (Auto) Lymph # (Auto) Hall # (Auto) Eos # (Auto) Baso # (Auto) WBC Differential Differential Comment ESR 9 Sodium Potassium Chloride Carbon Dioxide Anion Gap BUN Creatinine Estimated GFR Random Glucose Calcium Prot Corrected Calcium Magnesium Total Bilirubin AST ALT Alkaline Phosphatase Troponin I Total Protein Albumin TSH 0.626 Beta HCG, Quant Urine Color Urine Clarity Urine pH Ur Specific [place] Urine Protein Urine Glucose (UA) Urine Ketones Urine Occult Blood Urine Nitrate Urine Bilirubin Urine Urobilinogen Ur Leukocyte Esterase Urine RBC Urine WBC Ur Squamous Epith Cells Urine Mucus Micro UA Comment Ur Microscopic Review Urine Culture Comments Urine Opiates Screen Neg Ur Barbiturates Screen Neg Ur Amphetamines Screen Neg U Benzodiazepines Scrn Neg Urine Cocaine Screen Neg U Cannabinoids Screen Neg 08/18/18 08/18/18 08/19/18 14:21 18:15 00:53 WBC RBC Hgb Hct MCV MCH MCHC RDW Plt Count MPV Neut % (Auto) Lymph % (Auto) [place] % (Auto) Eos % (Auto) Baso % (Auto) Neut # (Auto) Lymph # (Auto) Hall # (Auto) Eos # (Auto) Baso # (Auto) WBC Differential Differential Comment ESR Sodium Potassium Chloride Carbon Dioxide Anion Gap BUN Creatinine Estimated GFR Random Glucose Calcium Prot Corrected Calcium Magnesium Total Bilirubin AST ALT Alkaline Phosphatase Troponin I Less than 0.02 L Less than 0.02 L Total Protein Albumin TSH Beta HCG, Quant Urine Color Yellow Urine Clarity Clear Urine pH 6.0 Ur Specific [place] 1.016 Urine Protein Negative Urine Glucose (UA) Negative Urine Ketones Negative Urine Occult Blood Negative Urine Nitrate Negative Urine Bilirubin Negative Urine Urobilinogen Less than 2 Ur Leukocyte Esterase Negative Urine RBC Less than 1 Urine WBC 1 Ur Squamous Epith Cells 3 Urine Mucus Few H Micro UA Comment Culture not ind Ur Microscopic Review Not Reportable Urine Culture Comments Culture not ind Urine Opiates Screen Ur Barbiturates Screen Ur Amphetamines Screen U Benzodiazepines Scrn Urine Cocaine Screen U Cannabinoids Screen 08/19/18 05:49 WBC 5.0 RBC 4.59 Hgb 12.7 Hct 39.7 MCV 86.5 MCH 27.7 MCHC 32.0 RDW 13.4 Plt Count 226 MPV 9.1 Neut % (Auto) 55.0 Lymph % (Auto) 33.6 Hall % (Auto) 6.6 Eos % (Auto) 4.2 H Baso % (Auto) 0.6 Neut # (Auto) 2.8 Lymph # (Auto) 1.7 Hall # (Auto) 0.3 Eos # (Auto) 0.2 Baso # (Auto) 0.0 WBC Differential . Differential Comment Auto diff final ESR Sodium Potassium Chloride Carbon Dioxide Anion Gap BUN Creatinine Estimated GFR Random Glucose Calcium Prot Corrected Calcium Magnesium Total Bilirubin AST ALT Alkaline Phosphatase Troponin I Total Protein Albumin TSH Beta HCG, Quant Urine Color Urine Clarity Urine pH Ur Specific [place] Urine Protein Urine Glucose (UA) Urine Ketones Urine Occult Blood Urine Nitrate Urine Bilirubin Urine Urobilinogen Ur Leukocyte Esterase Urine RBC Urine WBC Ur Squamous Epith Cells Urine Mucus Micro UA Comment Ur Microscopic Review Urine Culture Comments Urine Opiates Screen Ur Barbiturates Screen Ur Amphetamines Screen U Benzodiazepines Scrn Urine Cocaine Screen U Cannabinoids Screen - Imaging Impressions Carotid Doppler Study 08/18/18 00:00 CONCLUSION: Negative examination for a hemodynamically significant carotid stenosis. Gray Amin MD FACR on-call Chest X-Ray 08/18/18 11:55 CONCLUSION: Negative examination. Cervical Spine CT 08/18/18 12:13 CONCLUSION: 1. Negative for an acute traumatic injury Head CT 08/18/18 12:13 CONCLUSION: 1. No acute intracranial abnormality identified. Assessment and Plan - Assessment (1) Syncope and collapse Code(s): R55 - Syncope and collapse Status: Acute (2) Cephalgia Code(s): R51 - Headache Status: Acute - Plan 28 year old female admitted with c/o dizziness, headache. Today while walking to bathroom she passed out. During EMS evaluation, she felt dizzy again and was noted bradycardic with HR down to 30s. Laboratory work up unremarkable, CT head negative. Syncope, etiology unclear Initially complaining of feeling dizzy and having headache. -Cardiology consultation, d/w [employer] CR[employer]. 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 DVT prophylaxis-pt. ambulatory Discharge Planning: pending work up (2) Cephalgia Qualifiers: Headache type: tension-type Headache chronicity pattern: episodic headache
--- NOTE | 2018-08-19 11:34 | ECHRPT ---
Indication: SYNCOPE CONCLUSIONS Normal left ventricular size. Wall thickness is normal. The left ventricular systolic function is no rmal with an estimated ejection fraction in the range of 60-65%. No regional wall motion abnormalities are prese nt. There is trace tricuspid valve regurgitation. The estimated pulmonary arterial pressure is 28 mmHg. BP: / HR: Rhythm: Sinus MEASUREMENTS (Male / Female) Normal Values Technical Quality:Good 2D ECHO LV Diastolic Diameter PLAX 3.9 cm 4.2 - 5.9 / 3.9 - 5.3 cm LV Systolic Diameter PLAX 2.6 cm IVS Diastolic Thickness 1.0 cm 0.6 - 1.0 / 0.6 - 0.9 cm LVPW Diastolic Thickness 1.0 cm 0.6 - 1.0 / 0.6 - 0.9 cm LV Relative Wall Thickness 0.5 LVOT Diameter 1.9 cm LA Systolic Diameter LX 2.5 cm 3.0 - 4.0 / 2.7 - 3.8 cm LV Ejection Fraction MOD 4C 70.1 % LV Ejection Fraction 4C AL 72.6 % M-MODE Aortic Root Diameter MM 1.9 cm LA Systolic Diameter MM 2.9 cm LA Ao Ratio MM 1.5 AV Cusp Separation MM 1.9 cm DOPPLER AV Peak Velocity 110.0 cm/s AV Peak Gradient 4.8 mmHg LVOT Peak Velocity 85.9 cm/s LVOT Peak Gradient 3.0 mmHg AV Area Cont Eq pk 2.2 cm MV Area PHT 4.2 cm Mitral E Point Velocity 96.7 cm/s Mitral A Point Velocity 61.7 cm/s Mitral E to A Ratio 1.6 LV E' Lateral Velocity 13.1 cm/s Mitral E to LV E' Lateral Ratio 7.4 LV E' Septal Velocity 11.2 cm/s Mitral E to LV E' Septal Ratio 8.6 TR Peak Velocity 214.0 cm/s TR Peak Gradient 18.3 mmHg Right Atrial Pressure 10.0 mmHg Pulmonary Artery Systolic Pressu 28.3 mmHg Right Ventricular Systolic Press 28.3 mmHg PV Peak Velocity 69.2 cm/s PV Peak Gradient 1.9 mmHg FINDINGS LEFT VENTRICLE Normal left ventricular size. Wall thickness is normal. The left ventricular systolic function is no rmal with an estimated ejection fraction in the range of 60-65%. No regional wall motion abnormalities are prese nt. RIGHT VENTRICLE Normal right ventricular size and systolic function. LEFT ATRIUM The left atrial size is normal. RIGHT ATRIUM The right atrial size is normal. ATRIAL SEPTUM Normal atrial septal thickness without atrial level shunting by limited color doppler interrogation. AORTA The aortic root and proximal ascending aorta are normal in size on limited imaging. MITRAL VALVE Structurally normal mitral valve. No mitral valve stenosis or regurgitation. AORTIC VALVE Trileaflet aortic valve. No aortic valve stenosis or regurgitation. TRICUSPID VALVE There is trace tricuspid valve regurgitation. The estimated pulmonary arterial pressure is 28 mmHg. PULMONARY VALVE No pulmonary valve regurgitation or stenosis. VESSELS The inferior vena cava is normal in size. PERICARDIUM No pericardial effusion. Gallito Villa MD (Electronically Signed) Final Date:19 August 2018 11:33
--- NOTE | 2018-08-19 11:49 | P.PN ---
Subjective Interval history: follow up for syncope, headache, dizziness: Patient seen and examined, awake, alert oriented x3. Mild dizziness today when getting out of bed, felt that she was spinning as well as the room. Mild headache. No nausea, no vomiting. Complains of chest pain on inspiration and palpation, same as yesterday. Nonradiating, no shortness of breath. Negative orthostatics. Went for echocardiogram. Sinus rhythm on monitor. 1300-called to room, pt. found on floor. [place] banging on door with foot, unclear if seizure. Was found lethargic, unable to get up. No loss of bowel or bladder function. No focal deficit noted. Hemodynamically stable. Halicat called. Stat BMP and CBC. Neurology consult pending. EEG ordered. Keppra 1000 mg loading dose x1 1430-patient was being evaluated by physical therapy, she sat up in bed again became very dizzy and near syncopal. Eyes fluttering. Patient was put back to bed. Ativan 0.5 mg IVP x1 given 1500-Dr. Vaughn evaluating patient, recommends no Keppra,try Fioricet and start Topamax 50 mg po bid. Orders placed. Pt. bedrest now, seizure precautions. Updated family at d Physical Exam Vital signs: Vital Signs 08/18/18 12:00 08/18/18 14:42 08/18/18 20:00 Temperature 96.5 F L Pulse Rate 71 96 H Respiratory Rate 18 Blood Pressure 152/70 H 98/65 L Pulse Oximetry 98 98 08/18/18 20:50 08/18/18 23:35 08/19/18 03:38 Temperature 96.6 F L 98.6 F Pulse Rate 82 88 76 Respiratory Rate 18 18 Blood Pressure 107/63 104/67 Pulse Oximetry 98 100 08/19/18 08:00 Temperature 98.2 F Pulse Rate 63 Respiratory Rate 17 Blood Pressure 107/57 L Pulse Oximetry 99 Intake & Output 08/18/18 08/19/18 08/19/18 18:59 06:59 18:59 Intake Total 1000 / 1000 1480 / 1480 Balance 1000 / 1000 1480 / 1480 Weight 92.079 kg Intake: IV 1000 / 1000 1000 / 1000 NS Inj 1,000 ML @ 100 mls/hr IV 1000 / 1000 .CONT .Q10H JAMAL Rx#:[id number] NS Inj 1,000 ML @ Wide Open IV. 1000 / 1000 SIG BOLUS ONE Rx#:[id number] Oral 480 / 480 Other: # Voids 1 3 Weight On Admission 172.72 kg Narrative: GENERAL: Well-nourished, well-developed patient in no apparent distress. SKIN: Warm and dry. HEAD: Atraumatic. Normocephalic. EYES: Pupils equal and round. No scleral icterus. No injection or drainage. ENT: No nasal bleeding or discharge. Mucous membranes pink and moist. NECK: Trachea midline. No JVD. CARDIOVASCULAR: Regular rate and rhythm. RESPIRATORY: No accessory muscle use. Clear to auscultation. Breath sounds equal bilaterally. GASTROINTESTINAL: Abdomen soft, non-tender, nondistended. Hepatic and splenic margins not palpable. MUSCULOSKELETAL: Extremities without clubbing, cyanosis, or edema. No obvious deformities. NEUROLOGICAL: Awake and alert and oriented x3. No obvious cranial nerve deficits. Motor grossly within normal limits. Five out of 5 muscle strength in the arms and legs. Normal speech. PSYCHIATRIC: Appropriate mood and affect; insight and judgment normal. Results - Labs CBC & Chem 7: 08/19/18 13:34 08/19/18 13:34 Laboratory Results - last 24 hr 08/18/18 08/18/18 08/18/18 11:54 11:54 11:54 WBC 5.6 RBC 4.61 Hgb 12.8 Hct 40.3 MCV 87.4 MCH 27.7 MCHC 31.7 L RDW 13.4 Plt Count 239 MPV 8.9 Neut % (Auto) 53.9 Lymph % (Auto) 34.6 [place]da % (Auto) 8.0 Eos % (Auto) 2.8 Baso % (Auto) 0.7 Neut # (Auto) 3.0 Lymph # (Auto) 1.9 [place]da # (Auto) 0.4 Eos # (Auto) 0.2 Baso # (Auto) 0.0 WBC Differential . Differential Comment Auto diff final ESR D-Dimer Quant (PE/DVT) Sodium 141 Cancelled Potassium 4.1 Cancelled Chloride 110 H Cancelled Carbon Dioxide 23.0 Cancelled Anion Gap 8 Cancelled BUN 10 Cancelled Creatinine 0.76 Cancelled Estimated GFR Greater than 89 Cancelled Random Glucose 83 Cancelled Calcium 7.9 L Cancelled Prot Corrected Calcium Cancelled Magnesium 1.9 Cancelled Total Bilirubin 0.3 Cancelled AST 18 Cancelled ALT 28 Cancelled Alkaline Phosphatase 79 Cancelled Troponin I Less than 0.02 L Total Protein 6.8 Cancelled Albumin 3.1 L Cancelled TSH Beta HCG, Quant Less than 1 Cancelled Urine Color Urine Clarity Urine pH Ur Specific [place] Urine Protein Urine Glucose (UA) Urine Ketones Urine Occult Blood Urine Nitrate Urine Bilirubin Urine Urobilinogen Ur Leukocyte Esterase Urine RBC Urine WBC Ur Squamous Epith Cells Urine Mucus Micro UA Comment Ur Microscopic Review Urine Culture Comments Urine Opiates Screen Ur Barbiturates Screen Ur Amphetamines Screen U Benzodiazepines Scrn Urine Cocaine Screen U Cannabinoids Screen 08/18/18 08/18/18 08/18/18 11:54 11:54 14:21 WBC RBC Hgb Hct MCV MCH MCHC RDW Plt Count MPV Neut % (Auto) Lymph % (Auto) [place] % (Auto) Eos % (Auto) Baso % (Auto) Neut # (Auto) Lymph # (Auto) [place] # (Auto) Eos # (Auto) Baso # (Auto) WBC Differential Differential Comment ESR 9 D-Dimer Quant (PE/DVT) Sodium Potassium Chloride Carbon Dioxide Anion Gap BUN Creatinine Estimated GFR Random Glucose Calcium Prot Corrected Calcium Magnesium Total Bilirubin AST ALT Alkaline Phosphatase Troponin I Total Protein Albumin TSH 0.626 Beta HCG, Quant Urine Color Urine Clarity Urine pH Ur Specific [place] Urine Protein Urine Glucose (UA) Urine Ketones Urine Occult Blood Urine Nitrate Urine Bilirubin Urine Urobilinogen Ur Leukocyte Esterase Urine RBC Urine WBC Ur Squamous Epith Cells Urine Mucus Micro UA Comment Ur Microscopic Review Urine Culture Comments Urine Opiates Screen Neg Ur Barbiturates Screen Neg Ur Amphetamines Screen Neg U Benzodiazepines Scrn Neg Urine Cocaine Screen Neg U Cannabinoids Screen Neg 08/18/18 08/18/18 08/19/18 14:21 18:15 00:53 WBC RBC Hgb Hct MCV MCH MCHC RDW Plt Count MPV Neut % (Auto) Lymph % (Auto) [place] % (Auto) Eos % (Auto) Baso % (Auto) Neut # (Auto) Lymph # (Auto) [place]da # (Auto) Eos # (Auto) Baso # (Auto) WBC Differential Differential Comment ESR D-Dimer Quant (PE/DVT) Sodium Potassium Chloride Carbon Dioxide Anion Gap BUN Creatinine Estimated GFR Random Glucose Calcium Prot Corrected Calcium Magnesium Total Bilirubin AST ALT Alkaline Phosphatase Troponin I Less than 0.02 L Less than 0.02 L Total Protein Albumin TSH Beta HCG, Quant Urine Color Yellow Urine Clarity Clear Urine pH 6.0 Ur Specific [place] 1.016 Urine Protein Negative Urine Glucose (UA) Negative Urine Ketones Negative Urine Occult Blood Negative Urine Nitrate Negative Urine Bilirubin Negative Urine Urobilinogen Less than 2 Ur Leukocyte Esterase Negative Urine RBC Less than 1 Urine WBC 1 Ur Squamous Epith Cells 3 Urine Mucus Few H Micro UA Comment Culture not ind Ur Microscopic Review Not Reportable Urine Culture Comments Culture not ind Urine Opiates Screen Ur Barbiturates Screen Ur Amphetamines Screen U Benzodiazepines Scrn Urine Cocaine Screen U Cannabinoids Screen 08/19/18 08/19/18 05:49 10:50 WBC 5.0 RBC 4.59 Hgb 12.7 Hct 39.7 MCV 86.5 MCH 27.7 MCHC 32.0 RDW 13.4 Plt Count 226 MPV 9.1 Neut % (Auto) 55.0 Lymph % (Auto) 33.6 [place]da % (Auto) 6.6 Eos % (Auto) 4.2 H Baso % (Auto) 0.6 Neut # (Auto) 2.8 Lymph # (Auto) 1.7 Ida # (Auto) 0.3 Eos # (Auto) 0.2 Baso # (Auto) 0.0 WBC Differential . Differential Comment Auto diff final ESR D-Dimer Quant (PE/DVT) 0.68 H Sodium Potassium Chloride Carbon Dioxide Anion Gap BUN Creatinine Estimated GFR Random Glucose Calcium Prot Corrected Calcium Magnesium Total Bilirubin AST ALT Alkaline Phosphatase Troponin I Total Protein Albumin TSH Beta HCG, Quant Urine Color Urine Clarity Urine pH Ur Specific [place] Urine Protein Urine Glucose (UA) Urine Ketones Urine Occult Blood Urine Nitrate Urine Bilirubin Urine Urobilinogen Ur Leukocyte Esterase Urine RBC Urine WBC Ur Squamous Epith Cells Urine Mucus Micro UA Comment Ur Microscopic Review Urine Culture Comments Urine Opiates Screen Ur Barbiturates Screen Ur Amphetamines Screen U Benzodiazepines Scrn Urine Cocaine Screen U Cannabinoids Screen - Imaging Impressions Carotid Doppler Study 08/18/18 00:00 CONCLUSION: Negative examination for a hemodynamically significant carotid stenosis. Gray Amin MD FACR on-call Chest X-Ray 08/18/18 11:55 CONCLUSION: Negative examination. Cervical Spine CT 08/18/18 12:13 CONCLUSION: 1. Negative for an acute traumatic injury Head CT 08/18/18 12:13 CONCLUSION: 1. No acute intracranial abnormality identified. Assessment and Plan - Assessment (1) Syncope and collapse Code(s): R55 - Syncope and collapse Status: Acute (2) Cephalgia Code(s): R51 - Headache Status: Acute - Plan 28 year old female admitted with c/o dizziness, headache. Today while walking to bathroom she passed out. During EMS evaluation, she felt dizzy again and was noted bradycardic with HR down to 30s. Laboratory work up unremarkable, CT head negative. Syncope, etiology unclear Initially complaining of feeling dizzy and having headache. 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 Neurology evaluation recommended -Echo EF 60-65%, CUS negative. -Continuous cardiac monitoring -Orthostatics q shift-negative -Neurology consulted per cardiology -pending -DC IVF -Holter in place -continues with dizziness, ? vertigo-will add Antivert PRN and PT consult Cephalgia, tension type headache -Neurology consultation pending -ESR and TSH ok Chest pain, atypical Trop negative, EKG reviewed SB -continue to monitor -surveillance system monitor -Cardiology following -will check D dimer Hx of Lupus on chronic steroids -resume PO steroids DVT prophylaxis-pt. ambulatory Continue to monitor, discharge pending improvement of symptoms and work up results Code Status: Full code Discussed Condition With: RN, pt, CM Discharge Planning: pending work up
[2018-08-19] MEDS ORDERED: levETIRAcetam 1000mg/100mL Inj 100 ML IV.SIG ONE (14:00)
[2018-08-19 14:03] LABS: Hematocrit 39.8 % (35.0-46.0); Hemoglobin 12.8 gm/dL (11.6-15.3); Mean Corpuscular HGB Conc 32.2 % (32.0-36.0); Mean Corpuscular Hemoglobin 27.8 pg (27.0-34.0); Mean Corpuscular Volume 86.4 fL (80.0-100.0); Mean Platelet Volume 8.9 fL (7.0-11.0); Platelet Count 229 th/mm3 (150-450); Red Blood Count 4.61 mil/mm3 (4.00-5.30); Red Cell Distribution Width 13.5 % (11.6-17.2); White Blood Count 5.9 th/mm3 (4.0-11.0)
[2018-08-19 14:29] LABS: Anion Gap 5 meq/L (5-15); Blood Urea Nitrogen 7 mg/dL (7-18); Calcium 8.3 mg/dL (8.5-10.1); Carbon Dioxide 28.5 meq/L (21.0-32.0); Chloride 109 meq/L (98-107); Glomerular Filtration Rate Greater Than 89 mL/min (>89); Glucose,Random 86 mg/dL (74-106); Sodium 142 meq/L (136-145)
--- NOTE | 2018-08-19 14:41 | ECG ---
Date Performed: 08/18/2018 Time Performed: 11:49:59 PTAGE: 28 years EKG: SINUS BRADYCARDIA Since the previous tracing, no significant change noted BORDERLINE ECG PREVIOUS TRACING : 07/19/2016 17.11 DOCTOR: Elisabeth Oliva Interpretating Date/Time 08/19/2018 14:40:25
--- NOTE | 2018-08-19 15:03 | P.CONNEU ---
History of Present Illness Service: Neurology Primary Care Provider: No Primary Care Physician Chief Complaint: dizziness, headache History of Present Illness: 28-year-old female admitted for dizziness, generalized weakness, headache. Apparently her pulse going down to 30s. Cardiology evaluation in progress. Also notes room spinning a little bit also feels lightheaded and generalized weakness nothing specific. Admits to mild to moderate stress level to depression. She apparently does not have some involuntary movements in the ER today. She has a history of migraine headaches worse when she has "female" children. Denies any neck pain any fever night sweats or chills any recent immunizations. Complains of mild photo phonophobia mild throbbing holocephalic had a headache and nausea. Symmetry of previous migraine headaches. Review of Systems All other systems reviewed negative except as stated in HPI [facility] - History History Provided By: Patient, Facility Manager Histology / EMT - Medical History Medical History: Medical History (Last Reviewed 08/19/18 @ 14:17 by Mendel Gage) Gestational diabetes Lupus Patient denies medical problems - Family History Family History: Family History (Last Reviewed 08/19/18 @ 14:17 by Mendel Gage) Mother Diabetes Father Cardiac defibrillator in situ Pacemaker - Tobacco History Second Hand Smoke Exposure: No Smoking Status: Never smoker - Alcohol History How Often Do You Have a Drink Containing Alcohol: Never - Substance Use History Substance History: No History of Abuse - Travel History Recent Travel in the [place] Within the Last 8 Weeks: No Recent Travel Out of the Country Within the Last 8 Weeks: No - Immunization History Tetanus Immunization: <5 Years Medications and Allergies Active Medications: Active Medications Acetaminophen (Tylenol) 650 mg PO Q4H PRN PRN Reason: Temp > 100.4 Al Hydroxide/Mg Hydroxide (Milk Of [place]) 30 ml PO DAILY PRN PRN Reason: SEVERE CONSITIPATION Sodium Chloride (Ns Inj) 1,000 mls @ 100 mls/hr IV.CONT .Q10H JAMAL Last Admin: 08/19/18 13:30 Dose: 100 mls/hr Meclizine HCl (Antivert) 25 mg PO Q8H PRN PRN Reason: DIZZINESS Ondansetron HCl (Zofran Inj) 4 mg IV.PUSH Q6H PRN PRN Reason: NAUSEA Last Admin: 08/19/18 11:01 Dose: 4 mg Allergies Allergy/AdvReac Type Severity Reaction Status Date / Time No Known Allergies Allergy Verified 08/18/18 11:43 Exam Vital signs: Vital Signs 08/18/18 20:00 08/18/18 20:50 08/18/18 23:35 Temperature 96.5 F L 96.6 F L Pulse Rate 96 H 82 88 Respiratory Rate 18 18 Blood Pressure 98/65 L 107/63 Pulse Oximetry 98 98 08/19/18 03:38 08/19/18 08:00 08/19/18 11:51 Temperature 98.6 F 98.2 F Pulse Rate 76 63 74 Respiratory Rate 18 17 16 Blood Pressure 104/67 107/57 L 120/70 Pulse Oximetry 100 99 100 08/19/18 13:15 Temperature Pulse Rate 78 Respiratory Rate 22 Blood Pressure 140/87 Pulse Oximetry 100 Intake & Output 08/18/18 08/19/18 08/19/18 18:59 06:59 18:59 Intake Total 1000 / 1000 1480 / 1480 1000 / 1000 Balance 1000 / 1000 1480 / 1480 1000 / 1000 Weight 92.079 kg Intake: IV 1000 / 1000 1000 / 1000 1000 / 1000 NS Inj 1,000 ML @ 100 mls/hr IV 1000 / 1000 1000 / 1000 .CONT .Q10H JAMAL Rx#:[id number] NS Inj 1,000 ML @ Wide Open IV. 1000 / 1000 SIG BOLUS ONE Rx#:[id number] Oral 480 / 480 Other: # Voids 1 3 Weight On Admission 172.72 kg Narrative: GENERAL: in NAD, SKIN: Warm and dry. HEAD: Atraumatic. Normocephalic. EYES: Pupils equal and round. No scleral icterus. ENT: No nasal bleeding or discharge. NECK: Trachea midline. No JVD. CARDIOVASCULAR: Regular rate and rhythm. RESPIRATORY: No accessory muscle use. GASTROINTESTINAL: Abdomen soft, non-tender, nondistended. MUSCULOSKELETAL: Extremities without clubbing, cyanosis, or edema. NEUROLOGICAL: Awake and alert. Oriented x3, no nuchal rigidity no temporal tenderness, no aphasia, fluent articulate, No facial asymmetry, OU 3-2mm, eomi, VFF, No drift, minimal right end gaze nystagmus, motor grossly within normal limits. Five out of 5 muscle strength in the arms and legs. No neglect signs within normal limits reflex 1+ symmetric plantarflexion no clonus PSYCHIATRIC: Appropriate mood and affect; insight and judgment normal. - Constitutional no acute distress - Routine HEENT Exam Head: Present: normocephalic Eye: Present: EOMI Results - Labs CBC & Chem 7: 08/19/18 13:34 08/19/18 13:34 Labs: Laboratory Results - last 24 hr 08/18/18 08/18/18 08/18/18 11:54 11:54 18:15 WBC RBC Hgb Hct MCV MCH MCHC RDW Plt Count MPV Neut % (Auto) Lymph % (Auto) [place] % (Auto) Eos % (Auto) Baso % (Auto) Neut # (Auto) Lymph # (Auto) [place] # (Auto) Eos # (Auto) Baso # (Auto) WBC Differential Differential Comment ESR 9 D-Dimer Quant (PE/DVT) Sodium Potassium Chloride Carbon Dioxide Anion Gap BUN Creatinine Estimated GFR POC Glucose Random Glucose Calcium Troponin I Less than 0.02 L TSH 0.626 08/19/18 08/19/18 08/19/18 00:53 05:49 10:50 WBC 5.0 RBC 4.59 Hgb 12.7 Hct 39.7 MCV 86.5 MCH 27.7 MCHC 32.0 RDW 13.4 Plt Count 226 MPV 9.1 Neut % (Auto) 55.0 Lymph % (Auto) 33.6 [place] % (Auto) 6.6 Eos % (Auto) 4.2 H Baso % (Auto) 0.6 Neut # (Auto) 2.8 Lymph # (Auto) 1.7 [place] # (Auto) 0.3 Eos # (Auto) 0.2 Baso # (Auto) 0.0 WBC Differential . Differential Comment Auto diff final ESR D-Dimer Quant (PE/DVT) 0.68 H Sodium Potassium Chloride Carbon Dioxide Anion Gap BUN Creatinine Estimated GFR POC Glucose Random Glucose Calcium Troponin I Less than 0.02 L TSH 08/19/18 08/19/18 08/19/18 13:11 13:34 13:34 WBC 5.9 RBC 4.61 Hgb 12.8 Hct 39.8 MCV 86.4 MCH 27.8 MCHC 32.2 RDW 13.5 Plt Count 229 MPV 8.9 Neut % (Auto) Lymph % (Auto) [place] % (Auto) Eos % (Auto) Baso % (Auto) Neut # (Auto) Lymph # (Auto) [place] # (Auto) Eos # (Auto) Baso # (Auto) WBC Differential Differential Comment ESR D-Dimer Quant (PE/DVT) Sodium 142 Potassium 4.0 Chloride 109 H Carbon Dioxide 28.5 Anion Gap 5 BUN 7 Creatinine 0.78 Estimated GFR Greater than 89 POC Glucose 95 Random Glucose 86 Calcium 8.3 L Troponin I TSH - Imaging Impressions Carotid Doppler Study 08/18/18 00:00 CONCLUSION: Negative examination for a hemodynamically significant carotid stenosis. Gray Amin MD FACR on-call Review/Management - Diagnosis (1) Migraine Code(s): G43.909 - Migraine, unspecified, not intractable, without status migrainosus Status: Acute Current Visit: Yes (2) Dysthymia Code(s): F34.1 - Dysthymic disorder Status: Acute Current Visit: Yes (3) Syncope and collapse Code(s): R55 - Syncope and collapse Status: Acute Current Visit: Yes (4) Cephalgia Code(s): R51 - Headache Status: Acute Current Visit: Yes (5) Lupus (systemic lupus erythematosus) Code(s): M32.9 - Systemic lupus erythematosus, unspecified Status: Acute Current Visit: Yes - Review/Management Plan: Currently seems extremity migraine headache. This could be causing some of her symptoms Cardiology evaluation negative up to this point Recommendation Follow-up EEG Trial of Topamax for migraine prophylaxis can also help from a seizure standpoint. Side effects been discussed with patient including neural tube defects nephrolithiasis. She understands and would like to try medication. She will follow-up with her outpatient doctor in the future MRI MRA brain Fioricet as needed for headache No driving, operating any heavy machinery or dangerous machinery, swimming alone for at least 6 months of being seizure, spell free. (4) Cephalgia Qualifiers: Headache type: tension-type Headache chronicity pattern: episodic headache
--- NOTE | 2018-08-19 15:19 | P.PNCA ---
Subjective Interval history: Patient denies any pressure, palpitations, edema or SOB. Patient does complain of CP that increases with palpation, dizziness and headache. Medications and Allergies Allergies Allergy/AdvReac Type Severity Reaction Status Date / Time No Known Allergies Allergy Verified 08/18/18 11:43 Active Medications: Active Medications Acetaminophen (Tylenol) 650 mg PO Q4H PRN PRN Reason: Temp > 100.4 Al Hydroxide/Mg Hydroxide (Milk Of [place] Liq) 30 ml PO DAILY PRN PRN Reason: SEVERE CONSITIPATION Sodium Chloride (Ns Inj) 1,000 mls @ 100 mls/hr IV.CONT .Q10H JAMAL Last Admin: 08/19/18 13:30 Dose: 100 mls/hr Meclizine HCl (Antivert) 25 mg PO Q8H PRN PRN Reason: DIZZINESS Ondansetron HCl (Zofran Inj) 4 mg IV.PUSH Q6H PRN PRN Reason: NAUSEA Last Admin: 08/19/18 11:01 Dose: 4 mg Physical Exam Vital signs: Vital Signs 08/18/18 20:00 08/18/18 20:50 08/18/18 23:35 Temperature 96.5 F L 96.6 F L Pulse Rate 96 H 82 88 Respiratory Rate 18 18 Blood Pressure 98/65 L 107/63 Pulse Oximetry 98 98 08/19/18 03:38 08/19/18 08:00 08/19/18 11:51 Temperature 98.6 F 98.2 F Pulse Rate 76 63 74 Respiratory Rate 18 17 16 Blood Pressure 104/67 107/57 L 120/70 Pulse Oximetry 100 99 100 08/19/18 13:15 Temperature Pulse Rate 78 Respiratory Rate 22 Blood Pressure 140/87 Pulse Oximetry 100 Intake & Output 08/18/18 08/19/18 08/19/18 18:59 06:59 18:59 Intake Total 1000 / 1000 1480 / 1480 1000 / 1000 Balance 1000 / 1000 1480 / 1480 1000 / 1000 Weight 92.079 kg Intake: IV 1000 / 1000 1000 / 1000 1000 / 1000 NS Inj 1,000 ML @ 100 mls/hr IV 1000 / 1000 1000 / 1000 .CONT .Q10H JAMAL Rx#:[id number] NS Inj 1,000 ML @ Wide Open IV. 1000 / 1000 SIG BOLUS ONE Rx#:[id number] Oral 480 / 480 Other: # Voids 1 3 Weight On Admission 172.72 kg - Constitutional no acute distress - Routine HEENT Exam Head: Present: normocephalic Eye: Present: PERRL ENT: Present: mucous membranes moist - Routine Neck Exam Present: full ROM - Routine Respiratory Exam Present: CTA bilaterally - Routine Cardiovascular Exam Present: S1, S2. Absent: murmur, gallop, rubs - Routine Abdominal Exam Present: normoactive bowel sounds - Routine Extremities Exam Present: full ROM, pulses intact, normal capillary refill. Absent: cyanosis, clubbing, edema - Routine Skin Exam Present: intact - Routine Neurological Exam Present: oriented X3 - Detailed Neurological Exam: Coma Scale Eye Opening: Spontaneous Verbal Response: Oriented Motor Response: Obey commands [place] Coma Scale Total: 15 - Routine Psychiatric Exam Present: normal affect Results 08/19/18 13:34 08/19/18 13:34 Cardiac Enzymes 08/18/18 08/18/18 08/18/18 Range/Units 11:54 11:54 18:15 AST 18 Cancelled (15-37) U/L Troponin I Less than 0.02 L Less than 0.02 L (0.02-0.05) ng/mL 08/19/18 Range/Units 00:53 AST (15-37) U/L Troponin I Less than 0.02 L (0.02-0.05) ng/mL CBC 08/18/18 08/19/18 08/19/18 Range/Units 11:54 05:49 13:34 WBC 5.6 5.0 5.9 (4.0-11.0) th/mm3 RBC 4.61 4.59 4.61 (4.00-5.30) mil/mm3 Hgb 12.8 12.7 12.8 (11.6-15.3) gm/dL Hct 40.3 39.7 39.8 (35.0-46.0) % Plt Count 239 226 229 (150-450) th/mm3 Neut # (Auto) 3.0 2.8 (1.8-7.7) th/mm3 Lymph # (Auto) 1.9 1.7 (1.0-4.8) th/mm3 [place] # (Auto) 0.4 0.3 (0.0-0.9) th/mm3 Eos # (Auto) 0.2 0.2 (0.0-0.4) th/mm3 Baso # (Auto) 0.0 0.0 (0.0-0.2) th/mm3 Comprehensive Metabolic Panel 08/18/18 08/18/18 08/19/18 Range/Units 11:54 11:54 13:34 Sodium 141 Cancelled 142 (136-145) meq/L Potassium 4.1 Cancelled 4.0 (3.5-5.1) meq/L Chloride 110 H Cancelled 109 H (98-107) meq/L Carbon Dioxide 23.0 Cancelled 28.5 (21.0-32.0) meq/L BUN 10 Cancelled 7 (7-18) mg/dL Creatinine 0.76 Cancelled 0.78 (0.50-1.00) mg/dL Calcium 7.9 L Cancelled 8.3 L (8.5-10.1) mg/dL AST 18 Cancelled (15-37) U/L ALT 28 Cancelled (10-53) U/L Alkaline Phosphatase 79 Cancelled (45-117) U/L Total Protein 6.8 Cancelled (6.4-8.2) g/dL Albumin 3.1 L Cancelled (3.4-5.0) g/dL Intake and Output 08/19/18 08/19/18 08/19/18 06:59 14:59 22:59 Intake Total 1480 / 1480 1000 / 1000 Balance 1480 / 1480 1000 / 1000 Intake: IV 1000 / 1000 1000 / 1000 NS Inj 1,000 ML @ 100 mls/hr IV 1000 / 1000 1000 / 1000 .CONT .Q10H JAMAL Rx#:[id number] Oral 480 / 480 Other: # Voids 3 - Imaging and Cardiology Imaging: Impressions Carotid Doppler Study 08/18/18 00:00 CONCLUSION: Negative examination for a hemodynamically significant carotid stenosis. Gray Amin MD FACR on-call Chest X-Ray 08/18/18 11:55 CONCLUSION: Negative examination. Cervical Spine CT 08/18/18 12:13 CONCLUSION: 1. Negative for an acute traumatic injury Head CT 08/18/18 12:13 CONCLUSION: 1. No acute intracranial abnormality identified. Assessment and Plan - Assessment (1) Syncope and collapse Code(s): R55 - Syncope and collapse Status: Acute (2) Cephalgia Code(s): R51 - Headache Status: Acute (3) Lupus (systemic lupus erythematosus) Code(s): M32.9 - Systemic lupus erythematosus, unspecified Status: Acute - Plan No new cardiac issues at this time. 2D echo shows EF 60-65%. Carotid US is negative for stenosis Patient continues to have headaches, neurology evaluation in progress. We will continue to monitor her on telemetry during her hospitalization. The patient was seen and evaluated by Dr. Farias who participated in care, management and decision making. - Attending Attestation Patient seen and examined. I reviewed and agree with the evaluation and plan as presented. Echo with normal LV function. No new cardiac issues. Neurology evaluation. (2) Cephalgia Qualifiers: Headache type: tension-type Headache chronicity pattern: episodic headache
[2018-08-19] MEDS ORDERED: Butalbital/ASA/Caff 50/325/40 Capsule PO PRN (15:52)
[2018-08-19] MEDS ORDERED: Butalbital/APAP/Caff 50/325/40 MG Tablet PO PRN (17:20)
[2018-08-19] MEDS ORDERED: Gadobutrol PF 10 MMOL/10 ML Vial (for RAD) IV.SIG ONE (19:06)
--- NOTE | 2018-08-19 19:35 | MR ---
EXAM DATE: 08/19/2018 7:11 PM EST AGE/SEX: 28 years / Female INDICATIONS: Dizziness. Syncope. CLINICAL DATA: This is the patient's subsequent encounter. Patient reports that signs and symptoms h ave been present for 1 day and indicates a pain score of 0/10. MEDICAL/SURGICAL HISTORY: Lupus. None. COMPARISON: No prior exams available for comparison. TECHNIQUE: 3D [id number] MRA was performed. Source images, multiplanar STS MIP, and 3D volum e MIP reconstructions were reviewed. FINDINGS: There is excellent visualization of the major intracranial arteries out to the second-order branch ve ssels. The anterior communicating artery has fusiform enlargement suggestive of an infundibulum near its confluence with the left anterior cerebral artery. It reaches a maximum diameter of 2 mm. This t apers as it courses towards the right. There is no evidence for vessel truncation or stenosis, and no evidence for vascular malformation. CONCLUSION: 1. 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 Consideratio n should be made to a follow-up MRA of the brain in 6 months to document stability. Otherwise, unrema rkable exam. Electronically signed by: Tung Jordan MD 08/19/2018 7:34 PM EST
--- NOTE | 2018-08-19 19:53 | MR ---
EXAM DATE: 08/19/2018 7:12 PM EST AGE/SEX: 28 years / Female INDICATIONS: Dizziness. Syncope. CLINICAL DATA: This is the patient's subsequent encounter. Patient reports that signs and symptoms h ave been present for 1 day and indicates a pain score of 0/10. MEDICAL/SURGICAL HISTORY: Lupus. None. COMPARISON: No prior exams available for comparison. TECHNIQUE: Multiplanar, multisequence examination of the brain was performed without and with 9 ml Ga davist (gadobutrol) contrast as a single exam dose. FINDINGS: Cerebrum: The ventricles are normal for age. No evidence of midline shift, mass lesion, hemorrhage or acute infarction. No extraaxial fluid collections are seen. The pituitary gland and suprasellar cistern are normal in configuration. White Matter: No significant signal abnormalities are seen in the white matter. Posterior Fossa: The cerebellum and brainstem are intact. The 4th ventricle is midline. The cerebel lopontine angle is unremarkable. The cerebellar tonsils are normal in position. Diffusion Imaging: No focal areas of restricted diffusion are seen. No evidence of acute infarction . Extracranial: The visualized portions of the orbits and paranasal sinuses are unremarkable. Post Contrast: No abnormal areas of parenchymal or dural enhancement. No evidence of blood-brain ba rrier breakdown. CONCLUSION: 1. Negative MR Brain with and without contrast. Electronically signed by: Tung Jordan MD 08/19/2018 7:52 PM EST
--- NOTE | 2018-08-19 20:56 | MG ---
cc: Tad Vaughn MD ELECTROENCEPHALOGRAM RECORD NUMBER: [id number] DESCRIPTION: Appearance of stage II sleep, theta and delta frequencies of 20-50 microvolts, low amplitude, beta in the frontal channels. Spindles noted and K complexes suggestive of stage II sleep. There are tiny frontal sharp transients noted. Good EEG variability and reactivity. The background incremented to 7-8 Hz on arousal. Single-lead EKG showing sinus rhythm. INTERPRETATION: Minimal nonspecific changes, otherwise mainly sleep and limited awake electroencephalogram. Clinical correlation. MD MADIE Bridges/te , 08:36 PM , 08:41 PM
[2018-08-19] MEDS: Topiramate 25 MG Tablet PO SCH (21:22)
[2018-08-20] MEDS: Sod Chloride 0.9% Inj 1,000 ML IV.CONT SCH ×2 (02:28→23:54)
--- NOTE | 2018-08-20 08:01 | P.PNNEU ---
Subjective Subjective Comments: has had a few spells; altered mental status; reduced responsiveness, vitals stable c/o headache and dizziness Active Medications: Active Medications Acetaminophen (Tylenol) 650 mg PO Q4H PRN PRN Reason: Temp > 100.4 Acetaminophen/Butalbital/Caffeine (Fioricet 50-325-40) 1 tab PO Q8H PRN PRN Reason: HEADACHE Al Hydroxide/Mg Hydroxide (Milk Of [place] Liq) 30 ml PO DAILY PRN PRN Reason: SEVERE CONSITIPATION Sodium Chloride (Ns Inj) 1,000 mls @ 100 mls/hr IV.CONT .Q10H JAMAL Last Admin: 08/20/18 02:28 Dose: 100 mls/hr Fosphenytoin Sodium 200 mgpe/ (Sodium Chloride) 54 mls @ 216 mls/hr IV.SIG Q12HR JAMAL Meclizine HCl (Antivert) 25 mg PO Q8H PRN PRN Reason: DIZZINESS Ondansetron HCl (Zofran Inj) 4 mg IV.PUSH Q6H PRN PRN Reason: NAUSEA Last Admin: 08/19/18 11:01 Dose: 4 mg Topiramate (Topamax) 50 mg PO BID JAMAL Last Admin: 08/19/18 21:22 Dose: 50 mg Allergies/Adverse Reactions: Allergies Allergy/AdvReac Type Severity Reaction Status Date / Time No Known Allergies Allergy Verified 08/18/18 11:43 Review of Systems All other systems reviewed negative except as stated in HPI Physical Exam Vital signs: Vital Signs 08/19/18 08:00 08/19/18 11:51 08/19/18 13:00 Temperature 98.2 F Pulse Rate 63 74 78 Respiratory Rate 17 16 22 Blood Pressure 107/57 L 120/70 140/87 Pulse Oximetry 99 100 08/19/18 13:15 08/19/18 16:00 08/19/18 22:15 Temperature 97.8 F 98.2 F Pulse Rate 78 85 104 H Respiratory Rate 22 16 17 Blood Pressure 140/87 139/81 109/76 Pulse Oximetry 100 100 95 08/19/18 22:30 08/20/18 00:00 08/20/18 01:00 Temperature 98.3 F Pulse Rate 88 71 69 Respiratory Rate 18 Blood Pressure 122/82 Pulse Oximetry 97 08/20/18 04:00 08/20/18 05:00 Temperature 97.8 F 97.8 F Pulse Rate 65 65 Respiratory Rate 17 17 Blood Pressure 114/69 114/69 Pulse Oximetry 95 95 Intake & Output 08/19/18 08/20/18 08/20/18 18:59 06:59 18:59 Intake Total 1700 / 1700 500 / 500 Output Total 0 / 0 Balance 1700 / 1700 500 / 500 Weight 96.3 kg Intake: IV 1700 / 1700 300 / 300 NS Inj 1,000 ML @ 100 mls/hr IV 1700 / 1700 300 / 300 .CONT .Q10H JAMAL Rx#:[id number] Oral 200 / 200 Output: Urine 0 / 0 Other: # Bowel Movements 0 Narrative: GENERAL: in NAD, SKIN: Warm and dry. HEAD: Atraumatic. Normocephalic. EYES: Pupils equal and round. No scleral icterus. ENT: No nasal bleeding or discharge. NECK: Trachea midline. No JVD. CARDIOVASCULAR: Regular rate and rhythm. RESPIRATORY: No accessory muscle use. GASTROINTESTINAL: Abdomen soft, non-tender, nondistended. NEUROLOGICAL: Awake and alert. Oriented x3, slow speech, no nuchal rigidity no temporal tenderness, no aphasia, fluent articulate, No facial asymmetry, OU 3 -2mm, eomi, VFF, No drift, motor grossly within normal limits. Five out of 5 muscle strength in the arms and legs. No neglect signs within normal limits reflex 1+ symmetric plantarflexion no clonus PSYCHIATRIC: calm - Constitutional no acute distress - Routine HEENT Exam Head: Present: normocephalic Objective Laboratory Results - last 24 hr 08/19/18 08/19/18 08/19/18 10:50 13:11 13:34 WBC 5.9 RBC 4.61 Hgb 12.8 Hct 39.8 MCV 86.4 MCH 27.8 MCHC 32.2 RDW 13.5 Plt Count 229 MPV 8.9 D-Dimer Quant (PE/DVT) 0.68 H Sodium Potassium Chloride Carbon Dioxide Anion Gap BUN Creatinine Estimated GFR POC Glucose 95 Random Glucose Calcium 08/19/18 13:34 WBC RBC Hgb Hct MCV MCH MCHC RDW Plt Count MPV D-Dimer Quant (PE/DVT) Sodium 142 Potassium 4.0 Chloride 109 H Carbon Dioxide 28.5 Anion Gap 5 BUN 7 Creatinine 0.78 Estimated GFR Greater than 89 POC Glucose Random Glucose 86 Calcium 8.3 L Review/Management - Diagnosis (1) Migraine Code(s): G43.909 - Migraine, unspecified, not intractable, without status migrainosus Status: Acute Current Visit: Yes (2) Dysthymia Code(s): F34.1 - Dysthymic disorder Status: Acute Current Visit: Yes (3) Syncope and collapse Code(s): R55 - Syncope and collapse Status: Acute Current Visit: Yes (4) Cephalgia Code(s): R51 - Headache Status: Acute Current Visit: Yes (5) Lupus (systemic lupus erythematosus) Code(s): M32.9 - Systemic lupus erythematosus, unspecified Status: Acute Current Visit: Yes - Review/Management Plan: Currently seems extremity migraine headache. This could be causing some of her symptoms Cardiology evaluation negative up to this point spells- epileptic vs psychogenic vs other mri brain nml. no fever, wbc in range Recommendation repeat eeg check cta brain trial of iv cerebryx Fioricet as needed for headache fall precautions d/w rn No driving, operating any heavy machinery or dangerous machinery, swimming alone for at least 6 months of being seizure, spell free. (4) Cephalgia Qualifiers: Headache type: tension-type Headache chronicity pattern: episodic headache
[2018-08-20] MEDS: Fosphenytoin Inj 200 MGPE in Sodium Chlor 0.9% Inj 50 ML IV.SIG SCH ×2 (10:37→21:44)
[2018-08-20] MEDS: Topiramate 25 MG Tablet PO SCH ×2 (10:37→21:45)
--- NOTE | 2018-08-20 12:33 | ECG ---
Date Performed: 08/19/2018 Time Performed: 17:19:50 PTAGE: 28 years EKG: Sinus rhythm WITH SINUS ARRHYTHMIA NORMAL ECG INTERPRETATION BASED ON A DEFAULT AGE OF 40 YEARS NO PREVIOUS TRACING DOCTOR: Aquilino Del Rio Interpretating Date/Time 08/20/2018 12:32:07
--- NOTE | 2018-08-20 12:45 | ECG ---
Date Performed: 08/19/2018 Time Performed: 13:15:15 PTAGE: 28 years EKG: Sinus rhythm BORDERLINE ECG INTERPRETATION BASED ON A DEFAULT AGE OF 40 YEARS PREVIOUS TRACING : 08/18/2018 01.46 DOCTOR: Aquilino Del Rio Interpretating Date/Time 08/20/2018 12:42:20
--- NOTE | 2018-08-20 12:46 | ECG ---
Date Performed: 08/19/2018 Time Performed: 13:14:23 PTAGE: 28 years EKG: Sinus rhythm WITH SINUS ARRHYTHMIA NORMAL ECG INTERPRETATION BASED ON A DEFAULT AGE OF 40 YEARS PREVIOUS TRACING : 08/18/2018 11.49 DOCTOR: Aquilino Del Rio Interpretating Date/Time 08/20/2018 12:42:26
--- NOTE | 2018-08-20 13:32 | P.PNCA ---
Subjective Interval history: Patient denies any CP, pressure, palpitations, edema or SOB. Patient does complain of headache and dizziness. While examining patient, she had an episode of becoming unresponsive for approximately 20 seconds. Medications and Allergies Allergies Allergy/AdvReac Type Severity Reaction Status Date / Time No Known Allergies Allergy Verified 08/18/18 11:43 Active Medications: Active Medications Acetaminophen (Tylenol) 650 mg PO Q4H PRN PRN Reason: Temp > 100.4 Acetaminophen/Butalbital/Caffeine (Fioricet 50-325-40) 1 tab PO Q8H PRN PRN Reason: HEADACHE Last Admin: 08/20/18 08:01 Dose: 1 tab Al Hydroxide/Mg Hydroxide (Milk Of [place] Wilson) 30 ml PO DAILY PRN PRN Reason: SEVERE CONSITIPATION Sodium Chloride (Ns Inj) 1,000 mls @ 100 mls/hr IV.CONT .Q10H [facility] Last Infusion: 08/20/18 12:47 Dose: 100 mls/hr Fosphenytoin Sodium 200 mgpe/ (Sodium Chloride) 54 mls @ 216 mls/hr IV.SIG Q12HR [facility] Last Infusion: 08/20/18 12:47 Dose: Infused Meclizine HCl (Antivert) 25 mg PO Q8H PRN PRN Reason: DIZZINESS Ondansetron HCl (Zofran Inj) 4 mg IV.PUSH Q6H PRN PRN Reason: NAUSEA Last Admin: 08/19/18 11:01 Dose: 4 mg Topiramate (Topamax) 50 mg PO BID [facility] Last Admin: 08/20/18 10:37 Dose: 50 mg Physical Exam Vital signs: Vital Signs 08/19/18 16:00 08/19/18 22:15 08/19/18 22:30 Temperature 97.8 F 98.2 F Pulse Rate 85 104 H 88 Respiratory Rate 16 17 Blood Pressure 139/81 109/76 Pulse Oximetry 100 95 08/20/18 00:00 08/20/18 01:00 08/20/18 04:00 Temperature 98.3 F 97.8 F Pulse Rate 71 69 65 Respiratory Rate 18 17 Blood Pressure 122/82 114/69 Pulse Oximetry 97 95 08/20/18 05:00 08/20/18 08:00 Temperature 97.8 F 98.1 F Pulse Rate 65 76 Respiratory Rate 17 16 Blood Pressure 114/69 109/78 Pulse Oximetry 95 100 Intake & Output 08/19/18 08/20/18 08/20/18 18:59 06:59 18:59 Intake Total 1700 / 1700 500 / 500 754 / 754 Output Total 0 / 0 Balance 1700 / 1700 500 / 500 754 / 754 Weight 96.3 kg Intake: IV 1700 / 1700 300 / 300 754 / 754 NS Inj 1,000 ML @ 100 mls/hr IV 1700 / 1700 300 / 300 700 / 700 .CONT .Q10H [facility] Rx#:[id number] Cerebyx Inj 200 MGPE In NS Inj 54 / 54 50 ML @ 216 mls/hr IV.SIG Q12HR [facility] Rx#:[id number] Oral 200 / 200 Output: Urine 0 / 0 Other: # Bowel Movements 0 - Constitutional no acute distress - Routine HEENT Exam Head: Present: normocephalic Eye: Present: PERRL ENT: Present: mucous membranes moist - Routine Neck Exam Present: full ROM - Routine Respiratory Exam Present: CTA bilaterally - Routine Cardiovascular Exam Present: S1, S2. Absent: murmur, gallop, rubs - Routine Abdominal Exam Present: normoactive bowel sounds - Routine Extremities Exam Present: full ROM, pulses intact, normal capillary refill. Absent: cyanosis, clubbing, edema - Routine Skin Exam Present: intact - Routine Neurological Exam Present: oriented X3 - Detailed Neurological Exam: Coma Scale Eye Opening: Spontaneous Verbal Response: Oriented Motor Response: Obey commands Graham Coma Scale Total: 15 - Routine Psychiatric Exam Present: normal affect Results 08/19/18 13:34 08/19/18 13:34 Cardiac Enzymes 08/18/18 08/19/18 Range/Units 18:15 00:53 Troponin I Less than 0.02 L Less than 0.02 L (0.02-0.05) ng/mL CBC 08/19/18 08/19/18 Range/Units 05:49 13:34 WBC 5.0 5.9 (4.0-11.0) th/mm3 RBC 4.59 4.61 (4.00-5.30) mil/mm3 Hgb 12.7 12.8 (11.6-15.3) gm/dL Hct 39.7 39.8 (35.0-46.0) % Plt Count 226 229 (150-450) th/mm3 Neut # (Auto) 2.8 (1.8-7.7) th/mm3 Lymph # (Auto) 1.7 (1.0-4.8) th/mm3 [place] # (Auto) 0.3 (0.0-0.9) th/mm3 Eos # (Auto) 0.2 (0.0-0.4) th/mm3 Baso # (Auto) 0.0 (0.0-0.2) th/mm3 Comprehensive Metabolic Panel 08/19/18 Range/Units 13:34 Sodium 142 (136-145) meq/L Potassium 4.0 (3.5-5.1) meq/L Chloride 109 H (98-107) meq/L Carbon Dioxide 28.5 (21.0-32.0) meq/L BUN 7 (7-18) mg/dL Creatinine 0.78 (0.50-1.00) mg/dL Calcium 8.3 L (8.5-10.1) mg/dL Intake and Output 08/19/18 08/20/18 08/20/18 22:59 06:59 14:59 Intake Total 700 / 700 500 / 500 754 / 754 Output Total 0 / 0 Balance 700 / 700 500 / 500 754 / 754 Intake: IV 700 / 700 300 / 300 754 / 754 NS Inj 1,000 ML @ 100 mls/hr IV 700 / 700 300 / 300 700 / 700 .CONT .Q10H [facility] Rx#:[id number] Cerebyx Inj 200 MGPE In NS Inj 54 / 54 50 ML @ 216 mls/hr IV.SIG Q12HR [facility] Rx#:[id number] Oral 200 / 200 Output: Urine 0 / 0 Other: # Bowel Movements 0 Weight 96.5 kg 96.3 kg - Imaging and Cardiology Imaging: Impressions Carotid Doppler Study 08/18/18 00:00 CONCLUSION: Negative examination for a hemodynamically significant carotid stenosis. Gray Amin MD FACR on-call Head MRI 08/19/18 17:20 CONCLUSION: 1. Negative MR Brain with and without contrast. Head MRA 08/19/18 17:20 CONCLUSION: 1. 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 Consideration should be made to a follow-up MRA of the brain in 6 months to document stability. Otherwise, unremarkable exam. Assessment and Plan - Assessment (1) Syncope and collapse Code(s): R55 - Syncope and collapse Status: Acute (2) Cephalgia Code(s): R51 - Headache Status: Acute (3) Lupus (systemic lupus erythematosus) Code(s): M32.9 - Systemic lupus erythematosus, unspecified Status: Acute - Plan Patient had an episode during examination this morning, telemetry showed no bradycardia, pauses or arrhythmias. Patient's EF is 60-65%. We will continue with current cardiac treatment plan. Patient has been placed on continuous EEG monitoring, neurology evaluation in progress. We will continue to monitor her on telemetry during her hospitalization. The patient was seen and evaluated by Dr. Farias who participated in care, management and decision making. - Attending Attestation Patient seen and examined. I reviewed and agree with the evaluation and plan as presented. Stable from cardiac standpoint, no new cardiac issues. Echo unremarkable. Neurology evaluation in progress. (2) Cephalgia Qualifiers: Headache type: tension-type Headache chronicity pattern: episodic headache
--- NOTE | 2018-08-20 16:29 | P.PNIM ---
Subjective Interval history: Patient reports intermittent lightheadedness as before. Denies any chest pain or shortness of breath. Physical Exam Vital signs: Vital Signs 08/19/18 22:15 08/19/18 22:30 08/20/18 00:00 Temperature 98.2 F Pulse Rate 104 H 88 71 Respiratory Rate 17 Blood Pressure 109/76 Pulse Oximetry 95 08/20/18 01:00 08/20/18 04:00 08/20/18 05:00 Temperature 98.3 F 97.8 F 97.8 F Pulse Rate 69 65 65 Respiratory Rate 18 17 17 Blood Pressure 122/82 114/69 114/69 Pulse Oximetry 97 95 95 08/20/18 08:00 08/20/18 12:00 Temperature 98.1 F 97.9 F Pulse Rate 76 70 Respiratory Rate 16 16 Blood Pressure 109/78 109/58 L Pulse Oximetry 100 98 Intake & Output 08/19/18 08/20/18 08/20/18 18:59 06:59 18:59 Intake Total 1700 / 1700 500 / 500 754 / 754 Output Total 0 / 0 Balance 1700 / 1700 500 / 500 754 / 754 Weight 96.3 kg Intake: IV 1700 / 1700 300 / 300 754 / 754 NS Inj 1,000 ML @ 100 mls/hr IV 1700 / 1700 300 / 300 700 / 700 .CONT .Q10H [facility] Rx#:[id number] Cerebyx Inj 200 MGPE In NS Inj 54 / 54 50 ML @ 216 mls/hr IV.SIG Q12HR [facility] Rx#:[id number] Oral 200 / 200 Output: Urine 0 / 0 Other: # Bowel Movements 0 Narrative: GENERAL: Patient sitting up in bed looking at her phone. Appears comfortable. SKIN: Warm and dry. HEAD: Normocephalic. EYES: No scleral icterus. No injection or drainage. NECK: Supple, trachea midline. No JVD. CARDIOVASCULAR: Regular rate and rhythm without murmurs, gallops, or rubs. RESPIRATORY: Breath sounds equal bilaterally. No accessory muscle use. GASTROINTESTINAL: Abdomen soft, non-tender, nondistended. MUSCULOSKELETAL: No cyanosis, or edema. BACK: Nontender without obvious deformity. No CVA tenderness. Results - Labs CBC & Chem 7: 08/19/18 13:34 08/19/18 13:34 Laboratory Results - last 24 hr 08/20/18 08/20/18 07:51 11:30 POC Glucose 106 Phenytoin 6.6 L - Imaging Impressions Head MRI 08/19/18 17:20 CONCLUSION: 1. Negative MR Brain with and without contrast. Head MRA 08/19/18 17:20 CONCLUSION: 1. 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 Consideration should be made to a follow-up MRA of the brain in 6 months to document stability. Otherwise, unremarkable exam. Assessment and Plan - Assessment (1) Syncope and collapse Code(s): R55 - Syncope and collapse Status: Acute (2) Cephalgia Code(s): R51 - Headache Status: Acute - Plan 28 year old female admitted with c/o dizziness, headache. Today while walking to bathroom she passed out. During EMS evaluation, she felt dizzy again and was noted bradycardic with HR down to 30s. Laboratory work up unremarkable, CT head negative. //Syncope, etiology unclear Initially complaining of feeling dizzy and having headache. -Cardiology consultation, d/w [employer] INSERTER. Neurology evaluation recommended -Echo EF 60-65%, CUS negative. -Continuous cardiac monitoring -Orthostatics q shift-negative -Neurology consulted per cardiology -pending -DC IVF -Holter in place -continues with dizziness, ? vertigo-will add Antivert PRN and PT consult Cephalgia, tension type headache -Neurology consultation pending -ESR and TSH ok = Appreciate neurology and cardiology assistance. Plan per consultants. Follow -up results of continuous EEG performed today. Appreciate neurology assistance. //Chest pain, atypical Trop negative, EKG reviewed SB -continue to monitor -quality assurance monitor body -Cardiology following -will check D dimer. = D-dimer 0.68. Will order CT pulmonary angiogram. Pending. //Hx of Lupus on chronic steroids -cont PO steroids = 04/19. Patient is not on p.o. steroids or any steroids. Does not appear to be in adrenal crisis as heart rate and blood pressure are stable. Will check stat cortisol and start on 10 mg prednisone daily. DVT prophylaxis-pt. ambulatory Continue to monitor, discharge pending improvement of symptoms and work up results Discussed Condition With: Patient, nurse Discharge Planning: Pending clearance by neurology and cardiology. (2) Cephalgia Qualifiers: Headache type: tension-type Headache chronicity pattern: episodic headache
[2018-08-20] MEDS: predniSONE 10 MG Tablet PO SCH (17:52)
--- NOTE | 2018-08-20 18:58 | CT ---
EXAM DATE: 08/20/2018 6:11 PM EST AGE/SEX: 28 years / Female INDICATIONS: Short of breath. Embolism. CLINICAL DATA: This is the patient's initial encounter. Patient reports that signs and symptoms have been present for 1 day and indicates a pain score of 0/10. MEDICAL/SURGICAL HISTORY: . Lupus. None. RADIATION DOSE: 10.20 CTDI (mGy) COMPARISON: No prior exams available for comparison. TECHNIQUE: Volumetric scanning was performed using a multi-row detector CT scanner during bolus infu remi of 60 ml Omnipaque 350 (iohexol) nonionic water-soluble contrast as a single exam dose. The sofy a was post processed with a variety of visualization algorithms including full volume maximum intensi ty projection and sliding thin slab reformation. Using automated exposure control and adjustment of t he mA and/or kV according to patient size, radiation dose was kept as low as reasonably achievable to obtain optimal diagnostic quality images. DICOM format image data is available electronically for r eview and comparison. FINDINGS: Pulmonary Arteries: No filling defects are seen in the pulmonary arteries out to the subsegmental ve ssels. The left and right pulmonary arteries are normal in diameter. Lung: No infiltrates seen. Effusion: None. Mediastinum: No evidence of mediastinal or hilar adenopathy. Other: The axilla is unremarkable. CONCLUSION: 1. The study is negative for pulmonary embolism. Electronically signed by: Tung Velarde MD 08/20/2018 6:57 PM EST
--- NOTE | 2018-08-20 19:08 | CT ---
EXAM DATE: 08/20/2018 6:14 PM EST AGE/SEX: 28 years / Female INDICATIONS: Atherosclerosis. CLINICAL DATA: This is the patient's initial encounter. Patient reports that signs and symptoms have been present for 1 day and indicates a pain score of 0/10. MEDICAL/SURGICAL HISTORY: . Lupus. None. RADIATION DOSE: 10.15 CTDI (mGy) COMPARISON: [facility], MRA HEAD W/O CONTRAST, 08/19/2018. [facility], MR HEAD W & W/O CONTRAST, 08/19/2018. [facility], CT HEAD W/O CONTRAST, 08/18/2018. . TECHNIQUE: Volumetric scanning was performed using a multi-row detector CT scanner during bolus infu remi of 40 ml Omnipaque 350 (iohexol) nonionic water-soluble contrast as a single exam dose. The d usama was post processed with a variety of visualization algorithms including full volume maximum inten sity projection, multi-planar sliding thin slab reformation, curved planar reformation, and surface r endering techniques. Using automated exposure control and adjustment of the mA and/or kV according t o patient size, radiation dose was kept as low as reasonably achievable to obtain optimal diagnostic quality images. DICOM format image data is available electronically for review and comparison. FINDINGS: There is excellent visualization of the major intracranial arteries out to the second-order branch ve ssels. There is no evidence for aneurysm, vessel truncation or stenosis, and no evidence for vascula r malformation. Special attention is directed to the anterior communicating artery and there is fusiform enlargement of the origin of the ACOM on the left side measuring less than 2 mm in width. The configuration of th e anterior communicating artery is congruent with the appearance on MRA performed earlier today. CONCLUSION: 1. 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 Recommend follow-up MRA in 6 months to document stability. 2. Otherwise negative exam. . Electronically signed by: Tung Velarde MD 08/20/2018 7:07 PM EST
--- NOTE | 2018-08-20 19:11 | CT ---
EXAM DATE: 08/20/2018 6:45 PM EST AGE/SEX: 28 years / Female INDICATIONS: Atherosclerosis. CLINICAL DATA: This is the patient's initial encounter. Patient reports that signs and symptoms have been present for 1 day and indicates a pain score of 0/10. MEDICAL/SURGICAL HISTORY: . Lupus. None. RADIATION DOSE: 10.15 CTDI (mGy) COMPARISON: [facility], [place] CAROTID DOPPLER , 08/18/2018. . TECHNIQUE: Volumetric scanning was performed using a multirow detector CT scanner during bolus infus ion of 40 ml Omnipaque 350 (iohexol) nonionic water-soluble contrast as a cumulative dose for multip le exams. The data was postprocessed with a variety of visualization algorithms including full-volu me maximum intensity projection, multiplanar sliding thin-slab reformation, curved-planar reformation , and surface-rendering techniques. Using automated exposure control and adjustment of the mA and/or kV according to patient size, radiation dose was kept as low as reasonably achievable to obtain opti mal diagnostic quality images. DICOM format image data is available electronically for review and co mparison. FINDINGS: Aortic Arch: There is a two-vessel origin of the great vessels from the aorta. No evidence of ostia l narrowing Right Carotid: The common carotid artery is intact. The carotid bulb has a normal configuration wit hout ulceration or narrowing. The internal carotid artery lumen is smooth without stenosis. The ext ernal carotid artery is intact. Left Carotid: The common carotid artery is intact. The carotid bulb has a normal configuration with out ulceration or narrowing. The internal carotid artery lumen is smooth without stenosis. The exte rnal carotid artery is intact. Vertebrals: The vertebral arteries have a symmetric diameter. No stenotic lesions are seen. Percent stenosis is calculated using the diameter of the stenotic region over the diameter of the nor mal distal internal carotid artery. CONCLUSION: 1. Negative CTA of the carotids. Electronically signed by: Tung Velarde MD 08/20/2018 7:10 PM EST
[2018-08-20] MEDS ORDERED: Sodium Chlor 0.9% Inj 500 ML IV.SIG SCH (23:00)
[2018-08-21] MEDS: Sod Chloride 0.9% Inj 1,000 ML IV.CONT SCH ×5 (05:10→23:45)
--- NOTE | 2018-08-21 08:04 | MG ---
cc: Tad Vaughn MD DATE: 08/20/2018 ELECTROENCEPHALOGRAM RECORD NUMBER: [id number] DESCRIPTION: Frequent eye movement artifact. Chewing artifact occurring, delta activity. unresponsive to the hearing aid technician at 132 background showing low-amplitude alpha beta activity. She had a eye open head rocking back and forth feeling, dizzy, and unresponsive. No epileptic activity noted at that time. Heart rate showing sinus rhythm. She is able to tell her name, date of , year, and the president, and began stating that she felt weak in her right side. Talking normally. INTERPRETATION: No epileptic correlation to unresponsive event, this may be psychogenic. Clinical correlation. Tad Vaughn MD MG/em , 07:34 PM , 07:39 PM [facility]
[2018-08-21] MEDS: Fosphenytoin Inj 200 MGPE in Sodium Chlor 0.9% Inj 50 ML IV.SIG SCH (08:33)
[2018-08-21] MEDS: predniSONE 10 MG Tablet PO SCH (08:34)
[2018-08-21] MEDS: Topiramate 25 MG Tablet PO SCH ×2 (08:34→21:06)
--- NOTE | 2018-08-21 09:26 | P.PNIM ---
Subjective Interval history: Feeling alright. Says she feels like going home. Denies any chest pain or shortness of breath. Denies lightheadedness. Is not feels that she will pass out. I reiterated that patient is not to drive or operate heavy machinery for 6 months or until cleared by neurologist. Patient says that she is on prednisone 10 mg at home, and has not run out. Physical Exam Vital signs: Vital Signs 08/20/18 12:00 08/20/18 16:00 08/20/18 20:00 Temperature 97.9 F 98.1 F 98.5 F Pulse Rate 70 87 94 H Respiratory Rate 16 18 20 Blood Pressure 109/58 L 100/59 L 121/82 Pulse Oximetry 98 96 100 08/21/18 00:00 08/21/18 04:00 08/21/18 04:04 Temperature 97.9 F 98 F Pulse Rate 85 83 106 H Respiratory Rate 16 16 Blood Pressure 112/58 L 102/71 Pulse Oximetry 98 100 08/21/18 08:00 Temperature 98 F Pulse Rate 77 Respiratory Rate 14 Blood Pressure 110/55 L Pulse Oximetry 100 Intake & Output 08/20/18 08/21/18 08/21/18 18:59 06:59 18:59 Intake Total 1434 / 1434 1794 / 1794 Output Total 200 / 200 Balance 1434 / 1434 1594 / 1594 Weight 98.8 kg Intake: IV 1054 / 1054 1554 / 1554 NS Inj 1,000 ML @ 125 mls/hr IV 1000 / 1000 1000 / 1000 .CONT .Q8H [facility] Rx#:[id number] Cerebyx Inj 200 MGPE In NS Inj 54 / 54 54 / 54 50 ML @ 216 mls/hr IV.SIG Q12HR [facility] Rx#:[id number] NS Inj 500 ML @ 1000 mls/hr IV. 500 / 500 SIG BOLUS [facility] Rx#:[id number] Oral 380 / 380 240 / 240 Output: Urine 200 / 200 Other: # Voids 5 # Bowel Movements 0 0 Narrative: GENERAL: Patient sitting up in bed. Appears comfortable. SKIN: Warm and dry. HEAD: Normocephalic. EYES: No scleral icterus. No injection or drainage. NECK: Supple, trachea midline. No JVD. CARDIOVASCULAR: Regular rate and rhythm without murmurs, gallops, or rubs. RESPIRATORY: Breath sounds equal bilaterally. No accessory muscle use. GASTROINTESTINAL: Abdomen soft, non-tender, nondistended. MUSCULOSKELETAL: No cyanosis, or edema. BACK: Nontender without obvious deformity. No CVA tenderness. Results - Labs CBC & Chem 7: 08/19/18 13:34 08/19/18 13:34 Laboratory Results - last 24 hr 08/20/18 08/20/18 08/21/18 11:30 16:54 06:30 Cortisol 4.6 Phenytoin 6.6 L 4.0 L - Imaging Impressions Chest CTA 08/20/18 00:00 CONCLUSION: 1. The study is negative for pulmonary embolism. Head CTA 08/20/18 08:00 CONCLUSION: 1. 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 Recommend follow-up MRA in 6 months to document stability. 2. Otherwise negative exam. . Neck CTA 08/20/18 08:00 CONCLUSION: 1. Negative CTA of the carotids. Assessment and Plan - Assessment (1) Syncope and collapse Code(s): R55 - Syncope and collapse Status: Acute (2) Cephalgia Code(s): R51 - Headache Status: Acute - Plan 28 year old female admitted with c/o dizziness, headache. Today while walking to bathroom she passed out. During EMS evaluation, she felt dizzy again and was noted bradycardic with HR down to 30s. Laboratory work up unremarkable, CT head negative. //Syncope, etiology unclear Initially complaining of feeling dizzy and having headache. -Cardiology consultation, d/w FUR EXAMINER. Neurology evaluation recommended -Echo EF 60-65%, CUS negative. -Continuous cardiac monitoring -Orthostatics q shift-negative -Neurology consulted per cardiology -pending -DC IVF -Holter in place -continues with dizziness, ? vertigo-will add Antivert PRN and PT consult Cephalgia, tension type headache -Neurology consultation pending -ESR and TSH ok = Appreciate neurology and cardiology assistance. Plan per consultants. Follow -up results of continuous EEG performed today. Appreciate neurology assistance. = Continue his EEG does not show any seizure activity. Neurology feels this is psychogenic. //Possible adrenal insufficiency Afternoon cortisol level 4.6 mcg/dL yesterday level which is in the normal range, however low normal range. Started back on prednisone 10 mg daily with improvement. She is to continue on this at home and follow-up with primary care. I discussed with patient that she is not to stop this medication suddenly. //Chest pain, atypical Trop negative, EKG reviewed SB -continue to monitor -monitoring and evaluation advisor -Cardiology following -will check D dimer. = D-dimer 0.68. Will order CT pulmonary angiogram. Pending. = CT pulmonary angiogram negative for embolism. //Hx of Lupus on chronic steroids -cont PO steroids = Follow-up primary care as outpatient. DVT prophylaxis-pt. ambulatory Continue to monitor, discharge pending improvement of symptoms and work up results Discharge Planning: Follow-up with neurology and cardiology as outpatient. Avoid driving or operating heavy machinery until cleared by neurology. (2) Cephalgia Qualifiers: Headache type: tension-type Headache chronicity pattern: episodic headache
--- NOTE | 2018-08-21 09:33 | P.DS ---
Date of admission: 08/19/18 16:34 Primary care physician: No Primary Care Physician Brief History from admission: This is a pleasant 28-year-old -French female with PMHx of lupus on Prednisone who presents to the emergency room for evaluation of syncope. According to the patient, this morning she got up and felt dizzy, had a headache , and mild nausea. She went to her job at [employer]. While working she continued to feel ill, went to bathroom to splash some water on her face when she passed out. States a [employer] and other employees found her. The next thing she remembers is waking up in the ambulance truck. No loss of bladder or bowel function. Per EMS, while patient was waiting in the ambulance she went to get up to go to the bathroom when she felt dizzy again and heart rate was noted to drop to 30s. Patient indicates that since last night she has had a headache, it is frontal, tension type. She has a history of headaches when she was for which she used to take Fioricet. Denies any photophobia. Indicates that she has been working a lot, works 6 days a week and only has 1 day of. She is telling me that she is having chest tightness, midsternum, non radiating, a "7". States she had chest tightness since coming in. States she had "cold symptoms" approximately 2 weeks ago. Denies any cough, sob, sputum. No recent fever or chills. States her menses are irregular, last one was June. Complaints of mild pelvic cramping. CT of the head negative. Cervical spine CT no acute fractures. Negative urine drug screen. UA was negative. She has hx of syncope back in January when she had the flu. Patient is admitted for further evaluation and treatment. DS: Diagnosis - Discharge Diagnosis (1) Syncope and collapse Status: Acute (2) Cephalgia Status: Acute DS: Medications - Discharge Medications Prescriptions: [id number] 1 tab PO Q8H PRN 7 Days tab PRN Reason: Headache DS: Summary Hospital Course: 28 year old female admitted with c/o dizziness, headache. Today while walking to bathroom she passed out. During EMS evaluation, she felt dizzy again and was noted bradycardic with HR down to 30s. Laboratory work up unremarkable, CT head negative. EEG, including continuous EEG negative for seizure activity. Patient had episodes of what appeared to be seizure activity however no correlation on EEG or telemetry. Imaging including neck, head CTA, head MRI, MRA negative for acute pathology and negative for vascular abnormality. Cardiology was consulted and patient was monitored on telemetry with no arrhythmia noted. Patient did have atypical chest pain, d-dimer mildly elevated however CT pulmonary angiogram is negative. Troponins and EKG without any acute findings, only sinus bradycardia. Neurology feels that patient symptomatology is psychogenic. She is to continue on Topamax for migraine. Patient reports being on prednisone 10 mg daily chronically due to a history of lupus. P.m. cortisol level found to be 4.6 mcg/dL, in the lownormal range. She was started back on prednisone 10 mg with improvement in symptoms. She is advised to follow-up with primary care with possible referral to endocrinology For problem based summary from most recent progress note, please see below. //Syncope, etiology unclear Initially complaining of feeling dizzy and having headache. 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 Neurology evaluation recommended -Echo EF 60-65%, CUS negative. -Continuous cardiac monitoring -Orthostatics q shift-negative -Neurology consulted per cardiology -pending -DC IVF -Holter in place -continues with dizziness, ? vertigo-will add Antivert PRN and PT consult Cephalgia, tension type headache -Neurology consultation pending -ESR and TSH ok = Appreciate neurology and cardiology assistance. Plan per consultants. Follow -up results of continuous EEG performed today. Appreciate neurology assistance. = Continue his EEG does not show any seizure activity. Neurology feels this is psychogenic. //Possible adrenal insufficiency Afternoon cortisol level 4.6 mcg/dL yesterday level which is in the normal range, however low normal range. Started back on prednisone 10 mg daily with improvement. She is to continue on this at home and follow-up with primary care. I discussed with patient that she is not to stop this medication suddenly. //Chest pain, atypical Trop negative, EKG reviewed SB -continue to monitor -night monitor -Cardiology following -will check D dimer. = D-dimer 0.68. Will order CT pulmonary angiogram. Pending. = CT pulmonary angiogram negative for embolism. //Hx of Lupus on chronic steroids -cont PO steroids = Follow-up primary care as outpatient. DVT prophylaxis-pt. ambulatory Continue to monitor, discharge pending improvement of symptoms and work up results Discharge Planning: Follow-up with neurology and cardiology as outpatient. Avoid driving or operating heavy machinery until cleared by neurology. - Time Spent with Patient Total time spent providing and/or coordinating discharge services: Greater than 30 minutes - Quality: VTE Deep Vein Thrombosis/Pulmonary Embolism Present on Admission: No Exam Vital signs: Vital Signs 08/20/18 12:00 08/20/18 16:00 08/20/18 20:00 Temperature 97.9 F 98.1 F 98.5 F Pulse Rate 70 87 94 H Respiratory Rate 16 18 20 Blood Pressure 109/58 L 100/59 L 121/82 Pulse Oximetry 98 96 100 08/21/18 00:00 08/21/18 04:00 08/21/18 04:04 Temperature 97.9 F 98 F Pulse Rate 85 83 106 H Respiratory Rate 16 16 Blood Pressure 112/58 L 102/71 Pulse Oximetry 98 100 08/21/18 08:00 Temperature 98 F Pulse Rate 77 Respiratory Rate 14 Blood Pressure 110/55 L Pulse Oximetry 100 Intake & Output 08/20/18 08/21/18 08/21/18 18:59 06:59 18:59 Intake Total 1434 / 1434 1794 / 1794 Output Total 200 / 200 Balance 1434 / 1434 1594 / 1594 Weight 98.8 kg Intake: IV 1054 / 1054 1554 / 1554 NS Inj 1,000 ML @ 125 mls/hr IV 1000 / 1000 1000 / 1000 .CONT .Q8H [facility] Rx#:[id number] Cerebyx Inj 200 MGPE In NS Inj 54 / 54 54 / 54 50 ML @ 216 mls/hr IV.SIG Q12HR [facility] Rx#:[id number] NS Inj 500 ML @ 1000 mls/hr IV. 500 / 500 SIG BOLUS JAMAL Rx#:[id number] Oral 380 / 380 240 / 240 Output: Urine 200 / 200 Other: # Voids 5 # Bowel Movements 0 0 Results Procedures completed during hospitalization: No invasive procedures. Labs on day of discharge: Labs from last 24 hours 08/21/18 08/20/18 08/20/18 06:30 16:54 11:30 Cortisol 4.6 Phenytoin 4.0 L 6.6 L Free Phenytoin 08/20/18 11:30 Cortisol Phenytoin Free Phenytoin Pending - Impressions ITS Impressions Carotid Doppler Study 08/18/18 00:00 CONCLUSION: Negative examination for a hemodynamically significant carotid stenosis. Gray Amin MD FACR on-call Chest X-Ray 08/18/18 11:55 CONCLUSION: Negative examination. Cervical Spine CT 08/18/18 12:13 CONCLUSION: 1. Negative for an acute traumatic injury Head CT 08/18/18 12:13 CONCLUSION: 1. No acute intracranial abnormality identified. Head MRI 08/19/18 17:20 CONCLUSION: 1. Negative MR Brain with and without contrast. Head MRA 08/19/18 17:20 CONCLUSION: 1. 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 Consideration should be made to a follow-up MRA of the brain in 6 months to document stability. Otherwise, unremarkable exam. Chest CTA 08/20/18 00:00 CONCLUSION: 1. The study is negative for pulmonary embolism. Head CTA 08/20/18 08:00 CONCLUSION: 1. 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 Recommend follow-up MRA in 6 months to document stability. 2. Otherwise negative exam. . Neck CTA 08/20/18 08:00 CONCLUSION: 1. Negative CTA of the carotids. Discharge Plan - Discharge Disposition Patient Disposition: 01 Discharge Home - Discharge Condition Condition: Good - Discharge Details Anticipated Discharge Date: 08/21/18 - Physicians Team Primary Care Provider: Primary Care Tierra,Gabby Attending Provider: Ronan Oates Other Providers: Lucretia Farias MD ; Tad Vaughn MD
--- NOTE | 2018-08-21 16:06 | P.PNCA ---
Subjective Interval history: No CP, SOB, or syncope Medications and Allergies Active Medications: Active Medications Acetaminophen (Tylenol) 650 mg PO Q4H PRN PRN Reason: Temp > 100.4 Al Hydroxide/Mg Hydroxide (Milk Of Merry Wilson) 30 ml PO DAILY PRN PRN Reason: SEVERE CONSITIPATION Sodium Chloride (Ns Inj) 1,000 mls @ 125 mls/hr IV.CONT .Q8H [facility] Last Infusion: 08/21/18 14:22 Dose: Infused Meclizine HCl (Antivert) 25 mg PO Q8H PRN PRN Reason: DIZZINESS Last Admin: 08/20/18 21:55 Dose: 25 mg Ondansetron HCl (Zofran Inj) 4 mg IV.PUSH Q6H PRN PRN Reason: NAUSEA Last Admin: 08/19/18 11:01 Dose: 4 mg Prednisone (Deltasone) 10 mg PO DAILY [facility] Last Admin: 08/21/18 08:34 Dose: 10 mg Topiramate (Topamax) 50 mg PO BID [facility] Last Admin: 08/21/18 08:34 Dose: 50 mg Allergies Allergy/AdvReac Type Severity Reaction Status Date / Time No Known Allergies Allergy Verified 08/18/18 11:43 Physical Exam Vital signs: Vital Signs 08/20/18 20:00 08/21/18 00:00 08/21/18 04:00 Temperature 98.5 F 97.9 F 98 F Pulse Rate 94 H 85 83 Respiratory Rate 20 16 16 Blood Pressure 121/82 112/58 L 102/71 Pulse Oximetry 100 98 100 08/21/18 04:04 08/21/18 08:00 08/21/18 12:00 Temperature 98 F 98.5 F Pulse Rate 106 H 100 H 101 H Respiratory Rate 14 18 Blood Pressure 110/55 L 116/63 Pulse Oximetry 100 98 Intake & Output 08/20/18 08/21/18 08/21/18 18:59 06:59 18:59 Intake Total 1434 / 1434 1794 / 1794 1054 / 1054 Output Total 200 / 200 Balance 1434 / 1434 1594 / 1594 1054 / 1054 Weight 217 lb 13.067 oz Intake: IV 1054 / 1054 1554 / 1554 1054 / 1054 NS Inj 1,000 ML @ 125 mls/hr IV 1000 / 1000 1000 / 1000 1000 / 1000 .CONT .Q8H [facility] Rx#:[id number] Cerebyx Inj 200 MGPE In NS Inj 54 / 54 54 / 54 54 / 54 50 ML @ 216 mls/hr IV.SIG Q12HR [facility] Rx#:[id number] NS Inj 500 ML @ 1000 mls/hr IV. 500 / 500 SIG BOLUS J[facility]AL Rx#:[id number] Oral 380 / 380 240 / 240 Output: Urine 200 / 200 Other: # Voids 5 # Bowel Movements 0 0 Narrative: GENERAL: Comfortable. SKIN: Warm and dry. HEAD: Normocephalic. NECK: Supple, trachea midline. No JVD. CARDIOVASCULAR: Regular rate and rhythm without murmurs, gallops, or rubs. RESPIRATORY: Breath sounds equal bilaterally. No accessory muscle use. GASTROINTESTINAL: Abdomen soft, non-tender, nondistended. MUSCULOSKELETAL: No cyanosis, or edema. NEUROLOGICAL: Grossly intact. Results 08/19/18 13:34 08/19/18 13:34 Intake and Output 08/21/18 08/21/18 08/21/18 06:59 14:59 22:59 Intake Total 1740 / 1740 1054 / 1054 Output Total 200 / 200 Balance 1540 / 1540 1054 / 1054 Intake: IV 1500 / 1500 1054 / 1054 NS Inj 1,000 ML @ 125 mls/hr IV 1000 / 1000 1000 / 1000 .CONT .Q8H [facility] Rx#:[id number] Cerebyx Inj 200 MGPE In NS Inj 54 / 54 50 ML @ 216 mls/hr IV.SIG Q12HR [facility] Rx#:[id number] NS Inj 500 ML @ 1000 mls/hr IV. 500 / 500 SIG BOLUS J[facility]AL Rx#:[id number] Oral 240 / 240 Output: Urine 200 / 200 Other: # Bowel Movements 0 Weight 217 lb 13.067 oz - Imaging and Cardiology Imaging: Impressions Head MRI 08/19/18 17:20 CONCLUSION: 1. Negative MR Brain with and without contrast. Head MRA 08/19/18 17:20 CONCLUSION: 1. 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 Consideration should be made to a follow-up MRA of the brain in 6 months to document stability. Otherwise, unremarkable exam. Chest CTA 08/20/18 00:00 CONCLUSION: 1. The study is negative for pulmonary embolism. Head CTA 08/20/18 08:00 CONCLUSION: 1. 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 Recommend follow-up MRA in 6 months to document stability. 2. Otherwise negative exam. . Neck CTA 08/20/18 08:00 CONCLUSION: 1. Negative CTA of the carotids. Assessment and Plan - Assessment (1) Syncope and collapse Code(s): R55 - Syncope and collapse Status: Acute (2) Cephalgia Code(s): R51 - Headache Status: Acute (3) Lupus (systemic lupus erythematosus) Code(s): M32.9 - Systemic lupus erythematosus, unspecified Status: Acute - Plan No recurrent symptoms. Patient's EF is 60-65%. We will continue with current cardiac treatment plan. Neurology evaluation in progress. OK to discharge from cardiac standpoint. (2) Cephalgia Qualifiers: Headache type: tension-type Headache chronicity pattern: episodic headache
--- NOTE | 2018-08-21 21:18 | HM ---
Date Performed: 08/18/2018 Time Performed: 19:27:00 HOOKUP DATE: 08/18/18 07:27:00 PM Mon ANALYSIS START TIME: 08/18/2018 7:32:00 PM ANALYSIS END TIME: 08/19/2018 6:50:27 PM PATIENT AGE: 28 PATIENT HEIGHT PATIENT WEIGHT DRUG LIST PATIENT DIAGNOSIS: SYNCOPE TEST NARRATIVE: The patient's average heart rate was 77 BPM. Heart rates greater than 120 B PM were noted < 1% of the time. No episodes of bradycardia were noted. No pauses exceeding 2.0 s econds were noted. 3 ventricular ectopics, which represented < 1% of the total beat count, were n oted. The highest ventricular ectopic frequency occurred from 07:00 AM to 08:00 AM Tue. During this time 1 VE(s) occurred. Ventricular ectopics were observed as 3 isolated beat(s) only. No couplets or runs were noted. 36 supraventricular ectopics, which represented < 1% of the total beat count, were noted. The highest supraventricular ectopic frequency occurred from 08:00 AM to 09:00 AM Tue. During this time 11 SVE(s) occurred. No episodes of ST depression (defined as -1.0 mm or more) w ere noted in channel 1. No episodes of ST depression (defined as -1.0 mm or more) were noted in [facility] 2. No episodes of ST depression (defined as -1.0 mm or more) were noted in channel 3. NO DIARY R ETURNED TEST INTERPRETATION: Holter monitor showing Sinus rhythm , sinus tachycardia with rare ectopy. There were no atrial fibrillation or other sustained dysrhythmi as. Signed by : Macho Payan
[2018-08-22 04:08] VITALS: TEMP 98.2
[2018-08-22] MEDS: Sod Chloride 0.9% Inj 1,000 ML IV.CONT SCH (05:01)
[2018-08-22] MEDS: predniSONE 10 MG Tablet PO SCH (09:02)
[2018-08-22] MEDS: Topiramate 25 MG Tablet PO SCH (09:03)
[2018-08-22 09:21] VITALS: BP 100/64; RESP 20; O2SAT 100
--- NOTE | 2018-08-22 10:10 | P.PNIM ---
Subjective Interval history: Better today. Denies any lightheadedness or dizziness. Has been walking around without difficulty. Physical Exam Vital signs: Vital Signs 08/21/18 12:00 08/21/18 16:00 08/21/18 18:29 Temperature 98.5 F 98.3 F Pulse Rate 99 H 89 133 H Respiratory Rate 18 20 Blood Pressure 147/83 H 114/58 L 105/51 L Pulse Oximetry 98 97 08/21/18 20:00 08/22/18 00:00 08/22/18 04:00 Temperature 98.2 F 98.8 F 98.2 F Pulse Rate 90 82 82 Respiratory Rate 19 16 16 Blood Pressure 113/62 112/65 107/72 Pulse Oximetry 99 95 97 08/22/18 08:00 Temperature 98.2 F Pulse Rate 70 Respiratory Rate 20 Blood Pressure 100/64 Pulse Oximetry 100 Intake & Output 08/21/18 08/22/18 08/22/18 18:59 06:59 18:59 Intake Total 1534 / 1534 1420 / 1420 Balance 1534 / 1534 1420 / 1420 Weight 97.2 kg Intake: IV 1054 / 1054 1000 / 1000 NS Inj 1,000 ML @ 125 mls/hr IV 1000 / 1000 1000 / 1000 .CONT .Q8H [facility] Rx#:[id number] Cerebyx Inj 200 MGPE In NS Inj 54 / 54 50 ML @ 216 mls/hr IV.SIG Q12HR [facility] Rx#:[id number] Oral 480 / 480 420 / 420 Other: # Voids 3 # Urine Diapers 2 Date of Last Bowel Movement 08/21/18 Narrative: GENERAL: Patient smiling today. In no acute distress. Witnessed patient stand up and walking in room without difficulty. SKIN: Warm and dry. HEAD: Normocephalic. EYES: No scleral icterus. No injection or drainage. NECK: Supple, trachea midline. No JVD. CARDIOVASCULAR: Regular rate and rhythm without murmurs, gallops, or rubs. RESPIRATORY: Breath sounds equal bilaterally. No accessory muscle use. GASTROINTESTINAL: Abdomen soft, non-tender, nondistended. MUSCULOSKELETAL: No cyanosis, or edema. BACK: Nontender without obvious deformity. No CVA tenderness. Results - Labs CBC & Chem 7: 08/19/18 13:34 08/19/18 13:34 Laboratory Results - last 24 hr 08/22/18 08:23 Phenytoin 4.6 L - Procedures No invasive procedures. Assessment and Plan - Assessment (1) Syncope and collapse Code(s): R55 - Syncope and collapse Status: Acute (2) Cephalgia Code(s): R51 - Headache Status: Acute - Plan 28 year old female admitted with c/o dizziness, headache. Today while walking to bathroom she passed out. During EMS evaluation, she felt dizzy again and was noted bradycardic with HR down to 30s. Laboratory work up unremarkable, CT head negative. //Syncope, etiology unclear Initially complaining of feeling dizzy and having headache. 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 Neurology evaluation recommended -Echo EF 60-65%, CUS negative. -Continuous cardiac monitoring -Orthostatics q shift-negative -Neurology consulted per cardiology -pending -DC IVF -Holter in place -continues with dizziness, ? vertigo-will add Antivert PRN and PT consult Cephalgia, tension type headache -Neurology consultation pending -ESR and TSH ok = Appreciate neurology and cardiology assistance. Plan per consultants. Follow -up results of continuous EEG performed today. Appreciate neurology assistance. = Continue his EEG does not show any seizure activity. Neurology feels this is psychogenic. = Suspect the patient's presyncopal episode secondary to postural orthostatic tachycardia as evidenced by heart rate elevation upon standing. This is greatly improved with addition of fludrocortisone. We will continue fludrocortisone as well as patient's chronic prednisone. Advised with patient that she will need to follow-up with primary care, limit hours worked to 8hr/ day. //Possible adrenal insufficiency Afternoon cortisol level 4.6 mcg/dL yesterday level which is in the normal range, however low normal range. Started back on prednisone 10 mg daily with improvement. She is to continue on this at home and follow-up with primary care. I discussed with patient that she is not to stop this medication suddenly. //Chest pain, atypical Trop negative, EKG reviewed SB -continue to monitor -radiation monitor -Cardiology following -will check D dimer. = D-dimer 0.68. Will order CT pulmonary angiogram. Pending. = CT pulmonary angiogram negative for embolism. //Hx of Lupus on chronic steroids -cont PO steroids = Follow-up primary care as outpatient. DVT prophylaxis-pt. ambulatory Discharge Planning: Follow-up with neurology and cardiology as outpatient. Avoid driving or operating heavy machinery until cleared by neurology. (2) Cephalgia Qualifiers: Headache type: tension-type Headache chronicity pattern: episodic headache
[2018-08-22 10:29] VITALS: PULSE 77
== END 2018-08-22 13:35 | disposition home or self-care (01) | DRG 312 ==
LOC: NEPE 10:17 → NEDA 10:17 → NEPGCP 14:56 → N04 08-19 22:14
PROVIDERS: ADMIT Internal Medicine; ATTEND Internal Medicine
CPT/HCPCS: 70450; 70496; 70498; 70544; 70553; 71010; 71045; 71275; 72125; 80048; 80053; 80185; 80186; 80307; 81001; 82533; 82948; 82962; 83735; 84443; 84484; 84702; 84703; 85025; 85027; 85379; 85651; 85652; 90760; 90761; 93005; 93225; 93306; 93880; 95819; 95953; 96360; 96361; 97162; 99285; A9585; G0378; J2060; J2405; J7030; J7040; J7506; J7512; Q2009; Q9967